=== PATIENT | female | born 1945 | race Caucasian/White ===

== ENCOUNTER → 2020-09-07 12:26 | Outpatient (BNVA) | payer MEDICARE, SELFPAY | PROVIDERS: PCP Family Medicine; Referring Provider Family Medicine; Visit Provider Internal Medicine Critical Care Medicine | DX: I70.0 Atherosclerosis of aorta (principal); R06.02 Shortness of breath | CPT/HCPCS: 71046; 80053; 82785; 85025; 86003; 86038; 86431 ==

== ENCOUNTER → 2020-11-24 09:06 | Outpatient (BNVA) | payer MEDICARE, SELFPAY | PROVIDERS: PCP Family Medicine; Visit Provider Internal Medicine Critical Care Medicine | DX: R91.1 Solitary pulmonary nodule (principal) | CPT/HCPCS: 87635 ==

== ENCOUNTER 2020-11-29 14:26 | Day surgery (SDC) | payer MEDICARE, SELFPAY ==
[2020-11-25 15:58] VITALS: BMI 22.6
[2020-11-29] VITALS (9 sets, daily range): BP systolic 162–177; BP diastolic 56–90; PULSE 68–91; RESP 18–20; TEMP 36.8; O2SAT 89–96
--- NOTE | 2020-11-29 14:49 | ANES.PREANE2 ---
Pre-Anesthetic Assessment Pre-Anesthetic Assessment: Height/Weight: Height 1.65 m Weight 61.689 kg Preop Diagnosis: ILD Proposed Procedure: Operation Date: 11/29/20 16:10 Proposed Procedures p [id number] r91.1(Not Applicable) - Monse Zamorano MD Familial anesthetic complications: none Was Beta Geovanna taken within 24 hours: N/A Was Clonidine taken within 24 hours: N/A Last intake: > 8 hrs Social: Social History: Alcohol and No tobacco Comment: 2 glasses of wine/day, former smoker - quit 18 years ago Exam: Pre-Anes Outpt Exam: alert, oriented x 3 and regular rate & rhythm Additional Exam Findings (including area of procedure): coarse breath sounds b/l Airway: Cervical ROM: WNL MP: 2 Dentition: Full Pulmonary: Pulmonary: Cough (chronic ) Anesthetic Plan: ASA status: 3 Anesthesia: General Risk of > 500 ml blood loss (7ml/kg in children): No PFSH Anesthesia PFSH: Medical History (Updated 11/22/20 @ 17:42 by Carla Wynn LPN) CAD (coronary artery disease) Chronic cough Endophthalmitis, left Gout HTN (hypertension) Hypercholesteremia Osteoarthritis Surgical History H/O angioplasty H/O tubal ligation Stented coronary artery Social History Smoking and tobacco status: former smoker Quit status (tobacco): has quit using tobacco Year quit tobacco: 2003 Former quit date comment: Hx of 1.5 PPD x 30 Years Second hand smoke exposure: No Smoking risk assessment/counseling performed?: No Alcohol intake: current Alcohol intake frequency: 0-2 Drinks per Day Alcohol type: wine Desire information about alcohol rehabilitation?: No Counseling given: No Desire information about substance/drug rehabilitation?: No Counseling given: No Lives independently: Yes Household members: spouse Marital status: Current occupational status: retired History of recent travel: No Current gender identity: Female Data Anesthesia Cardiac Studies: No Data to Display
[2020-11-29] MEDS: sodium chloride 0.9% 1,000 ML 30 ML IV (15:15)
--- NOTE | 2020-11-29 16:07 | W.PM.OPSUD ---
Surgery/Procedure H&P Update DATE OF PROCEDURE: November 29, 2020 DATE H&P PERFORMED: 11/09/20 H&P UPDATE INFORMATION: I have reviewed H&P completed within last 30 days, I have examined patient prior to procedure and No changes to prior documentation PREOP DIAGNOSIS: Left lower lobe endobronchial lesion PRIMARY INDICATION FOR PROCEDURE: This is a 75-year-old lady with suspected endobronchial lesion in the left lower lobe bronchus PLANNED PROCEDURE: Bronchoscopy inspection of the airway, possible endobronchial biopsy, bronchoalveolar lavage, Cytobrush, endobronchial sound guided transbronchial needle aspiration of lymph nodes and control of bleeding. Operation Date: 11/29/20 16:10 Proposed Procedures p [id number] r91.1(Not Applicable) - Monse Zamorano MD
[2020-11-29] MEDS: lidocaine 1% INJ 20 mL XX (16:16)
--- NOTE | 2020-11-29 17:07 | P.OP_ITS ---
Operative Report Date of procedure: November 29, 2020 Pre-op Diagnosis: Left lower lobe endobronchial lesion Brief History: This is a 75-year-old lady with suspected of left lower lobe endobronchial lesion coming in for bronchoscopic evaluation. Procedure: Name of the procedure: Bronchoscopy with inspection of the airway,endobronchial biopsies,endobronchial ultrasound-guided transbronchial needle aspiration of lymph nodes and control of bleeding. Indication: Suspected left lower lobe endobronchial lesion Anesthesia: General anesthesia. Local anesthesia: The sandy in the right and left mainstem bronchi were a nesthetized with 1% lidocaine, 3 mL. Description of the procedure: The procedure was explained to the patient and the consent was obtained. The patient was brought to the OR. The patient underwent endotracheal intubation for general anesthesia. Following induction of general anesthesia, the bronchoscope was advanced through the ET tube. The lower trachea appeared to be normal, no endotracheal lesion was seen. The sandy was sharp. The sandy, the right and left mainstem bronchi are anesthetized with 1% lidocaine. In a systematic manner bilateral bronchial tree was then examined. The bronchoscope was advanced into the left mainstem bronchus. About 2 cm from the sandy, there was mucosal irregularities extending from the left mainstem bronchus into the entrance of the left upper lobe and left lower lobe bronchus. There was narrowing of the airway. The lesion bled easily to touch. The appearance of the lesion is very concerning for malignancy. I did not try to pass the bronchoscope into the left upper lobe or lower lobe bronchus due to the risk of bleeding. The bronchoscope was then introduced into the right mainstem bronchus. The right upper lobe, right middle lobe and right lower lobe bronchi were examined up to the third subsegmental level and no abnormalities were identified. Multiple endobronchial biopsies were performed from the left mainstem bronchus. The samples are sent for histopathology and cytology. The endobronchial ultrasound was introduced through the ET tube. Mediastinal and left hilar lymphadenopathy was identified. Fine-needle aspiration was obtained from station 7 and 10 L lymph nodes. Samples: 1. The endobronchial biopsies are sent for histopathology. 2. The transbronchial needle aspiration of the aforementioned lymph node groups were sent for histopathology. Complications: There was moderate bleeding which was controlled with cold saline. No active bleeding was noted at the end of the procedure. Procedure time: 37 minutes.
--- NOTE | 2020-11-29 21:26 | ANE.PACU2 ---
Inpatient post-anesthesia follow up: Airway intact: Yes Vital signs: Temperature 98.2 F Pulse Rate 72 Respiratory Rate 20 Blood Pressure 162/56 Pulse Oximetry 96 Oxygen Delivery Me thod Simple Mask Oxygen Flow Rate 6 Fraction of Inspir ed Oxygen Hydration adequate: Yes Nausea and vomiting: No Pain level: 2 Mental status: Baseline
[2020-12-08 10:40] LABS: PD-L1 (Clone 22C3) by IHC BBPL See Report
== END 2020-11-29 17:50 | disposition home or self-care (01) ==
PROVIDERS: PCP Family Medicine; Visit Provider Internal Medicine Critical Care Medicine
PROC: BB4BZZZ Ultrasonography of Pleura (ICD-10-PCS; principal; 2020-11-29 16:00)
PROC: 0BJ08ZZ Inspection of Tracheobronchial Tree, Via Natural or Artificial Opening Endoscopic (ICD-10-PCS; CPT 31622; 2020-11-29 16:00)
DX: R91.1 Solitary pulmonary nodule (principal); Z87.891 Personal history of nicotine dependence; I25.10 Atherosclerotic heart disease of native coronary artery without angina pectoris; I10 Essential (primary) hypertension; E78.00 Pure hypercholesterolemia, unspecified; M19.90 Unspecified osteoarthritis, unspecified site
CPT/HCPCS: 31625; 31652; 80500; 88305; 88342; 94640; 96360; 96361; J1100; J2405; J2704; J2710; J3010; J3490; J7030; J7611

== ENCOUNTER → 2021-09-18 11:48 | Outpatient (BNVA) | payer MEDICARE, SELFPAY | PROVIDERS: PCP Family Medicine; Visit Provider Family Medicine | DX: R07.9 Chest pain, unspecified (principal) | CPT/HCPCS: 71046 ==

== ENCOUNTER 2022-05-09 12:21 | Observation (INO) | payer MEDICARE, SELFPAY ==
[2022-05-09] VITALS (90 sets, daily range): BP systolic 109–156; BP diastolic 68–95; PULSE 91–114; RESP 16–33; TEMP 36.8; O2SAT 43–100; BMI 20.7
--- NOTE | 2022-05-09 | CT_ITS ---
WS: [id number] CT CHEST TECHNIQUE: Noncontrast CT of the chest with coronal and sagittal reformatted images. CLINICAL INFORMATION: ABNORMALITY NOTED ON CT THORACIC SPINE COMPARISON: None. DLP: 208.[address] scans at [facility] use at least one of these dose optimization techniques: automated e xposure control; mA and/or kV adjustment per patient size (includes targeted exams where dose is matc hed to clinical indication); or iterative reconstruction. FINDINGS: Cardiomegaly. Moderate pericardial effusion. Normal caliber thoracic aorta. Moderate aortic calcifica tion. Prominent main pulmonary arteries can be seen with pulmonary arterial hypertension. Moderate LEFT pleural effusion with compressive atelectasis. Small RIGHT pleural effusion with compre ssive atelectasis. Advanced chronic emphysematous changes. Compression fractures in the mid thoracic spine described on the thoracic spine CT. LEFT costovertebral joint fractures at T6, T7, and T8. Nondisplaced fractures of the tips of the spinous processes at T6 and T7. CT/CT chest con [id number] IMPRESSION: 1. Moderate pericardial effusion. 2. Moderate LEFT and small RIGHT pleural effusions with compressive atelectasi s. 3. Mid thoracic spine compression fractures described on the thoracic spine CT . 4. LEFT costovertebral joint fractures at T6, T7, and T8. 5. Nondisplaced fractures of the tips of the spinous processes at T6 and T7.
[2022-05-09 12:34] LABS: Glucose Point of Care 89 mg/dL (70-110)
--- NOTE | 2022-05-09 12:51 | CT_ITS ---
WS: [id number] CT CERVICAL TRAUMA TECHNIQUE: Noncontrast CT of the cervical spine with coronal and sagittal reformatted images. CLINICAL INFORMATION: fall COMPARISON: None. DLP: 1264.[address] scans at [facility] use at least one of these dose optimization techniques: automated e xposure control; mA and/or kV adjustment per patient size (includes targeted exams where dose is matc hed to clinical indication); or iterative reconstruction. FINDINGS: Straightening of the normal cervical lordosis. Moderate spondylitic changes. Slight grade 1 anterolis thesis C4 on C5. Disc space narrowing worse at C5-C6 and C6-C7. No high-grade central canal stenosis. Normal craniocervical junction. Normal C1-C2 articulation. Dens is normal in appearance. Normal occi pital condyles. No high-grade spinal canal narrowing. Normal C1 ring. No evidence of acute fracture o r dislocation. Normal prevertebral soft tissues. Partially visualized fluid opacification of the LEFT lung apex. Bessie st CT is pending. Mastoids air cells are well aerated. Carotid calcification. CT/CT cervical spin wo con* [id number] IMPRESSION: 1. No evidence of acute fracture or dislocation. 2. Partially visualized fluid opacification of the LEFT lung apex. Chest CT is pending.
--- NOTE | 2022-05-09 12:51 | CT_ITS ---
WS: [id number] CT THORACIC SPINE TECHNIQUE: Noncontrast CT of the thoracic spine with coronal and sagittal reformatted images. CLINICAL INFORMATION: fall pain mid back COMPARISON: None. DLP: 367.[address] scans at [facility] use at least one of these dose optimization techniques: automated e xposure control; mA and/or kV adjustment per patient size (includes targeted exams where dose is matc hed to clinical indication); or iterative reconstruction. FINDINGS: Moderate thoracic kyphosis. Acute compression fractures involving T6, T7, T8, T10 vertebral bodies. M ild compression inferior endplate at T6 with slight fragmentation anteriorly. Biconcave compression w ith anterior wedging at T7 and T8. Mild compression superior endplate T10. No significant retropulsio n. Loss vertebral body height worse at T8 with 50% loss vertebral body height. 40% loss of height at T7. Associated paravertebral soft tissue edema. Fracture of the costovertebral junctions at LEFT T6, LEFT T7, LEFT T8. Partially visualized LEFT greater than RIGHT pleural effusions. Compressive atelectasis in the lung b ases. Advanced emphysematous changes. Partially visualized pericardial effusion. CT/CT thoracic spin wo con* [id number] IMPRESSION: 1. Acute compression fractures T6, T7, T8, and T10 vertebral bodies worse at T 8 with biconcave compression loss of approximately 50% vertebral body height. 2. No significant retropulsion. No significant central canal stenosis. 3. Partially visualized LEFT greater than RIGHT pleural effusions. 4. LEFT costovertebral junction fractures at T5-T7.
--- NOTE | 2022-05-09 12:51 | ECG_ITS ---
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 Measurements Intervals Baylis Rate: 111 P: 54 MT: 164 QRS: -28 QRSD: 121 T: 119 QT: 357 QTc: 486 Interpretive Statements SINUS TACHYCARDIA POSSIBLE ANTERIOR MYOCARDIAL INFARCTION , OF INDETERMINATE AGE [30 ms Q WAVE IN V3/V4, OR R < 0.2 mV IN V4] No previous ECG available for comparison Electronically Signed On 05-09-2022 21:42:51 BOOSTER PUMP OPERATOR by Jackie Pierce M.D. [id number]
--- NOTE | 2022-05-09 12:51 | CT_ITS ---
WS: [id number] CT HEAD TECHNIQUE: Noncontrast CT of the head obtained from the skullbase to the vertex. CLINICAL INFORMATION: fall on DOAC 3 days ago now altered COMPARISON: None. DLP: 1264.[address] scans at [facility] use at least one of these dose optimization techniques: automated e xposure control; mA and/or kV adjustment per patient size (includes targeted exams where dose is matc hed to clinical indication); or iterative reconstruction. FINDINGS: No evidence of intracranial hemorrhage or mass effect. Ventricular system and basal cisterns are navarrete nt. Moderate small vessel changes with moderate parenchymal volume loss. Vascular calcification. 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 Paranasal sinuses and mastoid air cells are well aerated. Normal posterior nasopharynx. CT/CT head wo con* [id number] IMPRESSION: 1. No evidence of intracranial hemorrhage or mass effect. 2. Moderate small vessel changes. Moderate parenchymal volume loss. 3. Intracranial vascular calcification. 4. Chronic encephalomalacia at the RIGHT frontoparietal junction near the vert ex and LEFT parietal occipital junction consistent with chronic infarcts. 5. No acute intracranial findings.
--- NOTE | 2022-05-09 12:53 | ED_ITS ---
HPI - Altered Mental Status General: Chief Complaint: Altered Mental Status Stated Complaint: AMS Time Seen by Provider: 05/09/22 12:33 Source: EMS Mode of arrival: EMS History of Present Illness: This patient was transported by her home at the request of her spouse. The history is primarily obtained from EMS but some components were obtained from the patient. Allegedly she had a ground-level fall at home approximately 3 days ago. At that time she was seen at [facility] emergency department and evaluated and discharged. Allegedly since that time she has had an alteration in her mental status. She does have a history of geoffrey ing Eliquis and its unclear whether she is continue to take that medicine after her fall. When questioned she does endorse that she has a mild headache but otherwise has no other discomfort that she complains of. She denies other symptoms currently. Review of Systems General: Reports: ROS unobtainable due to medical condition [facility] ED PFSH: Medical History CAD (coronary artery disease) Chronic cough Endophthalmitis, left Gout HTN (hypertension) Hypercholesteremia Osteoarthritis Surgical History H/O angioplasty H/O tubal ligation Stented coronary artery Social History Smoking and tobacco status: former smoker Quit status (tobacco): has quit using tobacco Year quit tobacco: 2003 Former quit date comment: Hx of 1.5 PPD x 30 Years Second hand smoke exposure: No Smoking risk assessment/counseling performed?: No Alcohol intake: current Alcohol intake frequency: 0-2 Drinks per Day Alcohol type: wine Desire information about alcohol rehabilitation?: No Counseling given: No Desire information about substance/drug rehabilitation?: No Counseling given: No Lives independently: Yes Household members: spouse Marital status: Current occupational status: retired History of recent travel: No Current gender identity: Female Physical Exam Narrative: Patient is alert makes good eye contact. She attempts to answer questions but cannot complete her answers accurately and becomes frustrated. Const: COMMON NORMALS: no acute distress and average body habitus GENERAL APPEARANCE: cooperative and comfortable ORIENTATION/CONSCIOUSNESS: Yes awake and Yes oriented to person HENMT: COMMON NORMALS: Normal nasal mucous membranes and turbinates present, moist oral mucous membranes and oropharynx normal HEAD & SCALP: contusion (occiput) FACE & SINUS: normal facial exam NOSE: Normal nasal mucous membranes and turbinates present Eye: COMMON NORMALS: Equal, round and reactive pupils present, EOMs intact bilaterally and conjunctivae normal CONJUNCTIVA: Yes conjunctivae normal PUPIL: Yes Equal, round and reactive pupils present Neck/C-Spine: COMMON NORMALS: full ROM CERVICAL SPINE: Yes cervical ROM nor mal, No pain with cervical ROM and No step off deformity Chest: COMMONS NORMALS: normal inspection of the chest and normal palpation of entire chest wall Resp: COMMON NORMALS: normal respiratory effort, No use of accessory muscles and clear to auscultation bilaterally AUSCULTATION: clear to auscultation bilaterally Cardio: COMMON NORMALS: regular rate, regular rhythm, No murmurs present (Cardio) and Peripheral pulses 2+ throughout RATE: regular rate RHYTHM: regular rhythm PERIPHERAL PULSES: Peripheral pulses 2+ throughout GI: COMMON NORMALS: Normal to inspection, nondistended, normoactive bowel sounds present, Soft to palpation and non-tender PALPATION: Yes Soft to palpation Back/Pelvis: THORACIC SPINE/UPPER BACK: Yes thoracic spinal tenderness LUMBAR SPINE/LOWER BACK: Yes normal to inspection, Yes lumbar ROM normal and No lumbar spinal tenderness PELVIS: Yes no pain with anterior-posterior compression and Yes no pain with lateral compression Extremity: COMMON NORMALS: normal to inspection, full ROM and capillary refill normal Neuro: COMMON NORMALS: moves all extremities and no focal motor deficits SE NSORIUM/ORIENTATION: Yes oriented to person CRANIAL NERVES: Yes CN normal except as noted OTHER: Again the patient is pleasantly confused but is oriented to person but is unaware of her current location and surroundings. She is able to recite remote events such as her birthday etc. Psych: COMMON NORMALS: cooperative Skin: COMMON NORMALS: no rashes or lesions noted and turgor normal GENERAL SKIN EXAM: no rashes or lesions noted and turgor normal Course Reevaluation(s): Reevaluation #1: The patient remains stable. She is alert. She again engages in conversations and will generally be aware of events and be able to answer questions fairly accurately and then she will come to a point where she cannot remember detail. Her is now present and he seems to be somewhat less and accurate in some of his responses as well. When I discussed the fact that she has a biopsy report that showed she had lung cancer he was unaware of that fact and states he had never been told of that. When I ask about chemotherapy his (the patient) stated although she has not received chemotherapy last year. The daughter who lives in [facility] apparently talked with the RN and I have managed to acquire her number I will place a call to her to get more in formation regarding their her parents. I have spoke with the patient's daughter in great detail. She relates that her mother does have some mild confusion at times but she perceives her current stat us is being a significant change. She states that she did get chemotherapy last year and completed that course. All of her care has been obtained through [facility] in [place]. She is not clear why the patient came here other than she may have been referred here from her primary care doctor who is affiliated with this facility. She states that her mother did have a significant urinary tract infection last year that caused some confusion and she wonders if that or other source of infection could be at play. Time: 17:42 Reevaluation #2: Urinalysis is is unrevealing as well as a gallbladder ultrasound for any signs of possible infection source. Given what as best be construed as a recent alteration and confusion we managed to convince the patient and spouse that it would be in her best interest for further evaluation and/or diagnostic testing to be performed and we would like to place him in observation status to carry out these plans. They voiced understanding were agreeable. I also contacted the patient's daughter who was very appreciative of our efforts. Time: 20:05 Vital Signs: Vital signs: Vital Signs Temperature 98.2 F 05/09/22 12:27 Pulse Rate 100 05/09/22 13:05 Respiratory Rate 31 H 05/09/22 13:05 Blood Pressure 138/71 05/09/22 19:05 Pulse Oximetry 95 05/09/22 19:05 Oxygen Delivery Me thod 05/09/22 12:27 Oxygen Flow Rate 4 05/09/22 12:27 MDM - Altered Mental Status Medical Decision Making This patient presented to the emergency department and her emergency department evaluation has been somewhat circuitous and complicated by some confusion both on the patient as well as the spouses part. Allegedly she came to our emergency department because she has been confused and was uncertain as to the time of that confusion but it was known that she had had a fall a couple of days ago and that she was taking Eliquis for atrial fibrillation and stroke prevention. She was seen at another facility and evaluate that time and discharge. There was some concern of whether she might of had a delayed intracranial hemorrhage due to her fall on Eliquis. Working with that presumption initially prior to obtaining more information a CT scan was obtained which did not reveal any evidence of intracranial hemorrhage etc. Subsequent imaging also was obtained due to clinical findings and she was discovered to have thoracic compression fractures in addition bilateral pleural effusions. 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 This information was shared with the family and the seemed to act as if he was unaware of this prior diagnosis however the patient did relate that she had had chemotherapy as well as other treatment at [facility] in [place]. Eventually we were able to contact the patient's daughter who relayed more information regarding her past history and in addition she seemed to think that her confusion had been over the last week to 10 days perhaps longer. She states she had a prior history of confusion with urosepsis and also relayed that that would be something she would be concerned about as well. So additional work-up was undertaken to include urinalysis which was eventually obtained as well as a gallbladder ultrasound due to a slight elevation in total bili and transaminases. Those tests were both unrevealing as to any potential source of infection. Clinically she remained stable on oxygen which she normally uses at home. No other focal findings were discovered to indicate source of acute infection etc. We were left with a differential diagnosis of delirium which in her case could be related to possible metastatic disease or a myriad of possibilities which not been elucidated in the emergency department this time. I discussed with the patient daughter as well as the overnight hospitalist and the plan was to put her in observation for additional testing and evaluation as indicated. Medical Records I reviewed the patient's medical records. Patient's apparently had a endobronchial biopsy in 2020 which showed non- squamous cell carcinoma. Lab Data I reviewed the patient's lab results. 05/09/22 15:00 05/09/22 15:[address] 05/09/22 00:00 IMPRESSION: 1. Moderate pericardial effusion. 2. Moderate LEFT and small RIGHT pleural effusions with compressive atelectasis. 3. Mid thoracic spine compression fractures described on the thoracic spine CT. 4. LEFT costovertebral joint fractures at T6, T7, and T8. 5. Nondisplaced fractures of the tips of the spinous processes at T6 and T7. Cervical Spine CT 05/09/22 12:51 IMPRESSION: 1. No evidence of acute fracture or dislocation. 2. Partially visualized fluid opacification of the LEFT lung apex. Chest CT is pending. Head CT 05/09/22 12:51 IMPRESSION: 1. No evidence of intracranial hemorrhage or mass effect. 2. Moderate small vessel changes. Moderate parenchymal volume loss. 3. Intracranial vascular calcification. 4. Chronic encephalomalacia at the RIGHT frontoparietal junction near the vertex and LEFT parietal occipital junction consistent with chronic infarcts. 5. No acute intracranial findings. Thoracic Spine CT 05/09/22 12:51 IMPRESSION: 1. Acute compression fractures T6, T7, T8, and T10 vertebral bodies worse at T8 with biconcave compression loss of approximately 50% vertebral body height. 2. No significant retropulsion. No significant central canal stenosis. 3. Partially visualized LEFT greater than RIGHT pleural effusions. 4. LEFT costovertebral junction fractures at T5-T7. Gallbladder Ultrasound 05/09/22 17:42 IMPRESSION: No acute sonographic findings. Laboratory Results WBC 4.4 10^3/uL (4.0-10.0) 05/09/22 15:00 RBC 4.71 10^6/uL (4.1-5.3) 05/09/22 15:00 Hgb 13.0 g/dL (11.5-15.3) 05/09/22 15:00 Hct 43.1 % (37.0-47.0) 05/09/22 15:00 MCV 91.5 fl (81-99) 05/09/22 15:00 MCH 27.6 pg (28.0-34.0) L 05/09/22 15:00 MCHC 30.2 g/dL (30.0-36.0) 05/09/22 15:00 RDW 18.0 % (12.1-15.1) H 05/09/22 15:00 Plt Count 174 10^3/cmm (130-400) 05/09/22 15:00 MPV 11.4 fL (7.4-10.4) H 05/09/22 15:00 Neut % (Auto) 79.6 % 05/09/22 15:00 Lymph % (Auto) 14.3 % 05/09/22 15:00 Craven % (Auto) 5.0 % 05/09/22 15:00 Eos % (Auto) 0.2 % 05/09/22 15:00 Baso % (Auto) 0.2 % 05/09/22 15:00 Neut # (Auto) 3.52 10^3/uL (1.8-7.7) 05/09/22 15:00 Lymph # (Auto) 0.6 10^3/uL (0.8-4.8) L 05/09/22 15:00 Craven # (Auto) 0.2 10^3/uL (0.2-0.9) 05/09/22 15:00 Eos # (Auto) 0.0 10^3/uL (0.0-0.8) 05/09/22 15:00 Baso # (Auto) 0.0 10^3/uL (0.0-0.1) 05/09/22 15:00 Nucleated RBC % (auto) 0 % 05/09/22 15:00 Nucleated RBCs # 0.0 /100WBC 05/09/22 15:00 PT 14.70 SECONDS (12.1-14.9) 05/09/22 15:00 INR 1.11 (0.8-1.2) 05/09/22 15:00 APTT 33.4 SECONDS (23.9-36.7) 05/09/22 15:00 Sodium 140 mmol/L (136-145) 05/09/22 15:00 Potassium 4.0 mmol/L (3.5-5.1) 05/09/22 15:00 Chloride 98 mmol/L (98-107) 05/09/22 15:00 Carbon Dioxide 25 mmol/L (22-29) 05/09/22 15:00 Anion Gap 21.0 (5-19) H 05/09/22 15:00 BUN 17 mg/dL (8-23) 05/09/22 15:00 Creatinine 0.6 mg/dL (0.5-0.9) 05/09/22 15:00 GFR Calculation Not Reportable 05/09/22 15:00 Glucose 92 mg/dL (65-115) 05/09/22 15:00 POC Glucose 89 mg/dL (70-110) 05/09/22 12:30 Calculated Osmolality 291 mOsm/kg (285-295) 05/09/22 15:00 Calcium 9.2 mg/dL (8.5-10.5) 05/09/22 15:00 Total Bilirubin 1.9 mg/dL (0.15-1.2) H 05/09/22 15:00 AST 47 U/L (0-32) H 05/09/22 15:00 ALT 32 U/L (0-33) 05/09/22 15:00 Alkaline Phosphatase 120 U/L (35-105) H 05/09/22 15:00 Ammonia 20 umol/L (11-51) 05/09/22 15:00 Total Protein 7.6 g/dL (6.6-8.7) 05/09/22 15:00 Albumin 4.3 g/dL (3.5-5.2) 05/09/22 15:00 Globulin 3.3 g/dL (1.3-4.6) 05/09/22 15:00 Urine Color Yellow (Yellow) 05/09/22 19:09 Urine Appearance Clear (CLEAR) 05/09/22 19:09 Urine pH 6 (5-7) 05/09/22 19:09 Ur Specific Deputy 1.025 (1.005-1.030) 05/09/22 19:09 Urine Protein 1+ (Negative) H 05/09/22 19:09 Urine Glucose (UA) Norm (Normal) 05/09/22 19:09 Urine Ketones 1+ (Negative) H 05/09/22 19:09 Urine Blood 2+ (Negative) H 05/09/22 19:09 Urine Nitrate Negative (Negative) 05/09/22 19:09 Urine Bilirubin 1+ (Negative) H 05/09/22 19:09 Urine Urobilinogen 4 mg/dL (Negative) H 05/09/22 19:09 Ur Leukocyte Esterase Negative (Negative) 05/09/22 19:09 Urine RBC None /hpf (0-2) 05/09/22 19:09 Urine WBC 0-4 /hpf (0-5) H 05/09/22 19:09 Ur Squamous Epith Cells 0-4 /hpf (0-5) H 05/09/22 19:09 Amorphous Sediment Not Reportable 05/09/22 19:09 Urine Bacteria Trace /hpf (NONE) 05/09/22 19:09 Hyaline Casts 0-4 /lpf H 05/09/22 19:09 Urine Mucus Trace /hpf 05/09/22 19:09 Ethyl Alcohol < 10 mg/dL (0-10) 05/09/22 15:00 EKG Data EKG 1: I personally reviewed and interpreted this EKG as follows: Interpretation: Contemporaneous review of resting EKG reveals a sinus tachycardia 111 bpm. She has normal NE interval, normal QRS duration, normal QTc interval. She has Leftward axis. She has evidence of loss of R wave the anterior precordial leads suggestive of possible anterior wall infarction. Discharge Plan Discharge Patient Disposition: Placed in Observation Clinical Impression: Delirium due to general medical condition, Compression fracture of thoracic vertebra, Lung cancer, Pleural effusion Condition: Stable Prescriptions: No Action estradiol [Vagifem] 10 mcg tablet 10 mcg vaginal Q7D cetirizine [Zyrtec] 10 mg tablet 10 mg PO DAILY meloxicam 7.5 mg tablet 7.5 mg PO BID alendronate 70 mg tablet 70 mg PO Q7D Probiotic 10 billion cell capsule 10,000 mmu cells PO DAILY Rx Instructions: administer with a meal calcium carbonate [Calcium 600] 600 mg calcium (1,500 mg) tablet 600 mg PO DAILY Prevagen 1 tab PO DAILY aspirin [Adult Aspirin Regimen] 81 mg tablet,delayed release (DR/EC) 81 mg PO DAILY Tussin DM Max 10-200 mg/5 mL liquid 10 ml PO Q8H PRN (Reason: Cough) cholecalciferol (vitamin D3) 25 mcg (1,000 unit) capsule 25 mcg PO DAILY fluticasone propion-salmeterol [Advair Diskus] 250-50 mcg/dose blister with device 1 inh inhalation BID benzonatate [Tessalon Perles] 100 mg capsule 100 mg PO TID PRN (Reason: cough) 30 Days Qty: 90 3RF prednisone 20 mg tablet 40 mg PO DAILY 5 Days Qty: 10 0RF Lipitor 80 mg Tablet 80 mg PO DAILY tramadol 50 mg Tablet 50 mg PO Q8H PRN (Reason: Pain) cyclobenzaprine 5 mg Tablet 5 mg PO DAILY PRN (Reason: Muscle Pain) metoprolol tartrate 25 mg tablet 25 mg PO DAILY Eliquis 5 mg Tablet 5 mg PO BID Referrals: ERMELINDA MEJIA MD [Primary Care Provider] - Coding Level of Care Code ED Product Accountant for Chg Fwd Exam Comprehensive
--- NOTE | 2022-05-09 13:02 | PC.PHAR ---
PT UNABLE TO VERIFY HOME MEDS - ATTEMPTED TO CALL [facility] WITH NO ANSWER. VERIFIED BY EXTERNAL MED HISTORY AND PREVIOUS HOME MED LIST ENTERED.
[2022-05-09 15:11] LABS: Basophils % 0.2 %; Eosinophils % 0.2 %; Hematocrit 43.1 % (37.0-47.0); Lymphocytes # 0.6 10^3/uL (0.8-4.8); Lymphocytes % 14.3 %; Mean Corpuscular HGB Conc 30.2 g/dL (30.0-36.0); Mean Corpuscular Hemoglobin 27.6 pg (28.0-34.0); Mean Corpuscular Volume 91.5 fl (81-99); Mean Platelet Volume 11.4 fL (7.4-10.4); Monocytes # 0.2 10^3/uL (0.2-0.9); Neutrophils # 3.52 10^3/uL (1.8-7.7); Neutrophils % 79.6 %; Nucleated Red Blood Cells % 0 %; Platelet Count 174 10^3/cmm (130-400); Red Blood Count 4.71 10^6/uL (4.1-5.3); White Blood Count 4.4 10^3/uL (4.0-10.0)
[2022-05-09 15:31] LABS: INR 1.11 (0.8-1.2); Partial Thromboplastin Time 33.4 SECONDS (23.9-36.7)
[2022-05-09 15:37] LABS: Alanine Aminotransferase 32 U/L (0-33); Albumin Level 4.3 g/dL (3.5-5.2); Alkaline Phosphatase 120 U/L (35-105); Aspartate Amino Transferase 47 U/L (0-32); Blood Urea Nitrogen 17 mg/dL (8-23); Calcium 9.2 mg/dL (8.5-10.5); Carbon Dioxide 25 mmol/L (22-29); Chloride 98 mmol/L (98-107); Globulin 3.3 g/dL (1.3-4.6); Glucose 92 mg/dL (65-115); Osmolality Calculated 291 mOsm/kg (285-295); Sodium 140 mmol/L (136-145); Total Bilirubin 1.9 mg/dL (0.15-1.2); Total Protein 7.6 g/dL (6.6-8.7)
[2022-05-09 15:38] LABS: Alcohol Level < 10 mg/dL (0-10)
[2022-05-09 15:54] LABS: Ammonia 20 umol/L (11-51)
--- NOTE | 2022-05-09 17:42 | USR_ITS ---
PROCEDURE INFORMATION: Exam: US Abdomen, Limited; Right Upper Quadrant Exam date and time: 05/09/2022 5:50 PM Age: 77 years old Clinical indication: Abnormal findings; Abnormal lab test; Elevated liver enzymes; Additional info: Confusion, elivated bili TECHNIQUE: Imaging protocol: Real time ultrasound of the abdomen with image documentation. Limited exam focused on the right upper quadrant. COMPARISON: CT chest wo con [id number] 05/09/2022 1:27 PM FINDINGS: Liver: Unremarkable. Gallbladder: No gallstones. No gallbladder wall thickening or pericholecystic fluid. Negative sonographic Lyn's sign, as per the performing liaison inspection laboratory assistant. Biliary ducts: Normal. No stones. No dilation. Pancreas: Unremarkable as visualized. Right kidney: No mass. No definite stones. No hydronephrosis. US/US gall bladder [id number] IMPRESSION: No acute sonographic findings.
[2022-05-09 19:47] LABS: Add Urine Microscopic? YES; Bilirubin Urine 1+ (Negative); Blood Urine 2+ (Negative); Glucose Urine UA Norm (Normal); Ketones Urine 1+ (Negative); Leukocyte Esterase Urine Negative (Negative); Nitrate Urine Negative (Negative); Protein Urine 1+ (Negative); Specific Gravity, Urine 1.025 (1.005-1.030); Squamous Epithelial Cell Urine 0-4 /hpf (0-5); Urine Appearance Clear (CLEAR); Urine Color Yellow (Yellow); Urobilinogen Urine 4 mg/dL (Negative); WBC Urine 0-4 /hpf (0-5); pH Urine 6 (5-7)
[2022-05-09 19:48] LABS: Add Urine Culture? No; Bacteria Urine TRACE /hpf; Hyaline Casts Urine 0-4 /lpf; Mucus Urine TRACE /hpf
--- NOTE | 2022-05-09 21:21 | USCV_ITS ---
Jacqui Saavedra Age: 77 Gender: F : 1945 Exam Date: 05/09/2022 22:12 Ordering Phys: Anibal Godwin MD Technologist: ANA M [place] [facility] [place]ication: pericardial effusion Patient admitted for altered mental status. Patient denies hx cardiac intervention BP: 143 / 88 HR: 78 Rhythm: Atrial fibrillation Technical Quality: Adequate MEASUREMENTS (Male / Female) Normal Values 2D ECHO LV Diastolic Diameter PLAX 3.1 cm 4.2 - 5.9 / 3.9 - 5.3 cm LV Systolic Diameter PLAX 2.0 cm IVS Diastolic Thickness 1.5 cm 0.6 - 1.0 / 0.6 - 0.9 cm IVS Systolic Thickness 1.9 cm LVPW Diastolic Thickness 1.5 cm 0.6 - 1.0 / 0.6 - 0.9 cm LVPW Systolic Thickness 2.1 cm LVOT Diameter 1.9 cm LV Ejection Fraction 2D Teich 68.3 % LV Ejection Fraction MOD 2C 80.8 % LV Ejection Fraction 2C AL 82.0 % LA Diameter 3.0 cm LA Width 2.8 cm LA Height 4.3 cm RA Width 3.8 cm RA Height 4.9 cm Aorta at Sinotubular Diameter 2.7 cm IVC Diameter 2.0 cm M-MODE Aortic Annulus Diameter 2.7 cm LA Ao Ratio MM 1.2 MV E Point Septal Separation 0.4 cm DOPPLER AV Peak Velocity 102.0 cm/s LVOT Peak Velocity 81.0 cm/s AV Area Cont Eq vti 1.9 cm squared AV Area Cont Eq pk 2.2 cm squared MV Area PHT 5.0 cm squared MV E' Velocity 65.0 cm/s Mitral E to MV E' Ratio 6.8 Mitral E to LV E' Lateral Ratio 5.0 Mitral E to LV E' Septal Ratio 10.9 TR Peak Velocity 334.0 cm/s TR Peak Gradient 44.6 mmHg TV Peak E Velocity 94.3 cm/s Right Atrial Pressure 5.0 mmHg Pulmonary Artery Systolic Pressu 49.6 mmHg PV Peak Velocity 79.0 cm/s RV Acceleration Time 0.1 s RV Ejection Time 0.3 s RV AcT/ET 0.3 FINDINGS Left Ventricle Normal LV size ejection fraction of around 55% . Relative hypokinesia of the septum. Mild to moderate concentric left- ventricular hypertrophy Right Ventricle Dilated dilated right ventricle with a normal ejection fraction Right Atrium Mildly increased right atrial size. Left Atrium The left atrium is normal in size. Mitral Valve No gross abnormalities noted Aortic Valve Thickened aortic valve. Tricuspid Valve Moderately severe tricuspid regurgitation. Moderate pulmonary hypertension with an estimated pulmonary artery peak systolic pressure 55 mmHg Pulmonic Valve No gross abnormalities noted Pericardium Echo-free space anteriorly and posteriorly suggesting small to moderate pericardial effusion Possible moderate to large left-sided pleural effusion Aorta Normal aortic annulus size. IVC Normal IVC dimension with >50% respiratory change of the inferior vena cava. CONCLUSIONS Normal LV size ejection fraction of around 55% . Relative hypokinesia of the septum. Mild to moderate concentric left- ventricular hypertrophy. Echo-free space anteriorly and posteriorly suggesting small to moderate pericardial effusion Possible moderate to large left-sided pleural effusion Mildly increased right atrial size. Mildly dilated right ventricle with a normal ejection fraction Moderately severe tricuspid regurgitation. Moderate pulmonary hypertension with an estimated pulmonary artery peak systolic pressure 55 mmHg. Thickened aortic valve. No similar previous studies are available for comparison Dr Jackie Pierce MD [facility] (Electronically Signed) Final Date: 10 May 2022 08:21 S
--- NOTE | 2022-05-09 21:21 | USCV_ITS ---
Jacqui Saavedra Age: 77 Gender: F : 1945 Exam Date: 05/09/2022 21:34 Ordering Phys: Anibal Godwin MD Technologist: ANA M [place]am [place] [facility] [place] Indication: altered mental status. No DM. long-term smoker, continues smoking. Risk Factors: altered mental status. No DM. long-term smoker, continues smoking. Previous Vascular Surgery: None Right Brachial BP: 143 / 88 Left Brachial BP: / Right Left Velocity (cm/s) Spectral Plaque Velocity (cm/s) Spectral Plaque Syst/Diast Broadening Syst/Diast Broadening 53.40/ 3.70 Min Hetro Prox CCA 63.90 / 11.00 Min Hetro 48.60/ 6.90 Min Sony Mid CCA 59.50 / 13.20 Min Sony 37.40/ 9.10 Mod Sony Distal CCA 51.90 / 9.20 Mod Sony 122.27/14.53 Mod Sony Prox ICA 45.90 / 12.30 Mod Sony 35.45/ 10.15 Min Sony Mid ICA 77.70 / 20.20 Min Sony 84.80/ 26.30 Min Sony Distal ICA 82.30 / 26.40 Min Sony 78.30 Min Sony ECA 101.40 Min Sony 1.60 ICA/CCA 1.29 Antegrade Vertebral Antegrade 46.70/ 9.20 cm/s 48.50/ 12.10 cm/s Tri Subclavian Tri 59.80 60.50 CONCLUSIONS Right ICA stenosis <50%. Moderate atheromatous plaque right carotid bulb/ICA. Left ICA stenosis <50%. Moderate atheromatous plaque left carotid bulb/ICA. Normal antegrade Doppler flow noted in the right vertebral artery. Normal antegrade Doppler flow noted in the left vertebral artery. Charles Jarvis MD (Electronically Signed) Final Date: 10 May 2022 12:22 S
--- NOTE | 2022-05-09 21:23 | P.HP_ITS ---
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 Currently patient is alert to person, not to place, not to time, she can follow commands, she really does not have any complaints except the back of her head hurting her but she does not know why she is here. According to ER staff and ER physician, patient was at [facility] roughly a week ago for a fall, this history was obtained from , but infor mation was not very clear, were not exactly sure what happened during that hospitalization, but she was eventually discharged home. When she got home she continued to have falls she is taking Eliquis, her only complaint currently is that the back of her head hurts her and she feels foggy. No facial droop, no slurring of words, no focal weakness, she can follow commands such as closing her eyes, wiggling her toes, denies any back pain, no headache, no blurry vision, no neck pain, neck stiffness, no chest pain, shortness of breath no, no abdominal pain, no dysuria, Review of Systems Const: Denies: fever(s) Eyes: Denies: change in vision or blurry vision Card: Denies: chest pain Resp: Denies: dyspnea, productive cough, non-productive cough or wheezing GI: Denies: abdominal pain, nausea, vomiting or hematochezia : Denies: dysuria or urinary frequency Musc: Denies: neck pain or back pain Skin/Breast: Denies: rash Neuro: Denies: headache(s) or dizziness Medications/Allergies Home Medications Medication Instructions Recorded Confirmed Last Taken Type Lactobacillus acidophilus 10 10,000 mmu cells PO DAILY 09/07/20 05/09/22 11/27/20 History billion cell capsule (Probiotic) Prevagen 1 tab PO DAILY 09/07/20 05/09/22 11/27/20 History alendronate 70 mg tablet 70 mg PO Q7D 09/07/20 05/09/22 11/27/20 History aspirin 81 mg tablet,delayed 81 mg PO DAILY 09/07/20 05/09/22 11/27/20 History release (Adult Aspirin Regimen) calcium carbonate 600 mg calcium 600 mg PO DAILY 09/07/20 05/09/22 11/27/20 History (1,500 mg) tablet (Calcium) cetirizine 10 mg tablet (Zyrtec) 10 mg PO DAILY 09/07/20 05/09/22 11/27/20 History cholecalciferol (vitamin D3) 25 25 mcg PO DAILY 09/07/20 05/09/22 11/27/20 History mcg (1,000 unit) capsule dextromethorphan-guaifenesin 10 10 ml PO Q8H PRN Cough 09/07/20 05/09/22 11/27/20 History mg-200 mg/5 mL oral liquid (Tussin DM Max) estradiol 10 mcg vaginal tablet 10 mcg vaginal Q7D 09/07/20 05/09/22 11/27/20 History (Vagifem) meloxicam 7.5 mg tablet 7.5 mg PO BID 09/07/20 05/09/22 11/27/20 History benzonatate 100 mg capsule 100 mg PO TID PRN cough 30 days 11/09/20 05/09/22 11/27/20 Rx (Mireya Garcia) #90 caps fluticasone 250 mcg-salmeterol 50 1 inh inhalation BID 11/09/20 05/09/22 11/27/20 History mcg/dose blistr powdr for inhalation (Advair Diskus) prednisone 20 mg tablet 40 mg PO DAILY 5 days #10 tabs 11/29/20 05/09/22 Unknown Rx apixaban 5 mg tablet (Eliquis) 5 mg PO BID 05/09/22 05/09/22 Unknown History atorvastatin 80 mg tablet (Lipitor) 80 mg PO DAILY 05/09/22 05/09/22 Unknown History cyclobenzaprine 5 mg tablet 5 mg PO DAILY PRN Muscle Pain 05/09/22 05/09/22 Unknown History metoprolol tartrate 25 mg tablet 25 mg PO DAILY 05/09/22 05/09/22 Unknown History tramadol 50 mg tablet 50 mg PO Q8H PRN Pain 05/09/22 05/09/22 Unknown History Allergies Allergy/AdvReac Type Severity Reaction Status Date / Time clindamycin Allergy Mild ALGY-Rash Verified 11/25/20 15:50 PFSH Acute PFSH: Medical History CAD (coronary artery disease) Chronic cough Endophthalmitis, left Gout HTN (hypertension) Hypercholesteremia Osteoarthritis Surgical History H/O angioplasty H/O tubal ligation Stented coronary artery Social History Smoking and tobacco status: former smoker Quit status (tobacco): has quit using tobacco Year quit tobacco: 2003 Former quit date comment: Hx of 1.5 PPD x 30 Years Second hand smoke exposure: No Smoking risk assessment/counseling performed?: No Alcohol intake: current Alcohol intake frequency: 0-2 Drinks per Day Alcohol type: wine Desire information about alcohol rehabilitation?: No Counseling given: No Desire information about substance/drug rehabilitation?: No Counseling given: No Lives independently: Yes Household members: spouse Marital status: Current occupational status: retired History of recent travel: No Current gender identity: Female Vitals/I&O/Wt Last Vital Signs Temp 98.2 F 05/09/22 12:27 Pulse 100 05/09/22 13:05 Resp 31 H 05/09/22 13:05 BP 143/88 05/09/22 20:10 Pulse Ox 98 05/09/22 20:10 O2 Del Method 05/09/22 12:27 O2 Flow Rate 4 05/09/22 12:27 Weight last 48 hrs Weight 56.699 kg Physical Exam Const: COMMON NORMALS: no acute distress EXAM LIMITATIONS: altered mental status ORIENTATION/CONSCIOUSNESS: Yes awake, Yes oriented to person and Yes confused; not oriented to place and not oriented to time HENMT: COMMON NORMALS: normocephalic HEAD & SCALP: normocephalic Eye: COMMON NORMALS: Equal, round and reactive pupils present and EOMs intact bilaterally Neck/C-Spine: COMMON NORMALS: no JVD Lymph: LYMPHATIC: no lymphadenopathy noted Resp: COMMON NORMALS: normal respiratory effort, No retractions, No use of accessory muscles and clear to auscultation bilaterally AUSCULTATION: clear to auscultation bilaterally Cardio: COMMON NORMALS: regular rate, regular rhythm, S1 normal heart sound p resent and S2 normal heart sound present RATE: regular rate RHYTHM: regular rhythm HEART SOUNDS: S1 normal heart sound present and S2 normal heart sound present GI: COMMON NORMALS: Normal to inspection, nondistended, normoactive bowel sounds present, Soft to palpation and non-tender Extremity: COMMON NORMALS: no pedal edema Neuro: COMMON NORMALS: CN's II-XII intact bilaterally, moves all extremities, no focal motor deficits and no sensory deficits noted Data 05/09/22 15:00 05/09/22 15:00 A&P Assessment and plan (1) Compression fracture of thoracic vertebra: (2) Lung cancer: (3) Pleural effusion: (4) Altered mental status: (5) Pericardial effusion: (6) History of CVA (cerebrovascular accident): (7) Squamous cell lung cancer: (8) Fracture dislocation of costovertebral joint: (9) Bilateral pleural effusion: (10) Spinous process fracture: Plan Altered mental status -Etiology unclear at this time -UA unremarkable for UTI -chest x-ray no focal pneumonia -No neck pain, no neck stiffness, Kernig sign negative, brudunski sign negative -Urine cultures, blood cultures, sputum cultures -Pro-Sony, CRP, sed rate, TSH -Given her history of squamous cell carcinoma the lung, will consider MRI of the brain for possible intracranial mets? -Will evaluate for D-dimer, if elevated, will do CT angiogram of the chest given evidence of squamous cell carcinoma but has not undergone any form of further treatment or evaluation or follow-up -Obtain records from [facility] as she received some care there -Hopefully obtain more of a history from patient's daughter -ER physician spoke to patient's however history taking was difficult I was told, he was also surprised that she had a history of lung cancer, nor was he aware of any follow-up I was told -Full code -Eliquis for DVT prophylaxis Pericardial effusion, seen on CT Will do ultrasound -With history of falls possibly hemorrhagic pericardial effusion? -No hemodynamic compromise, no complaints of chest pain -Serial EKGs, serial troponins, telemetry monitoring Chronic CVA Chronic encephalomalacia at the RIGHT frontoparietal junction near the vertex and LEFT parietal occipital junction consistent with chronic infarcts. -Baseline mental status unknown, not sure if she has any focal neurologic deficits from this, timeframe unknown -Neurochecks, NIH stroke scale, Acute compression fractures T6, T7, T8, and T10 vertebral bodies worse at T8 with biconcave compression loss of approximately 50% vertebral body height. .-PT OT -Not complaining of any pain -Likely related to fall LEFT costovertebral junction fractures at T5-T7. ?.-PT OT -Not complaining of any pain -Likely related to fall Nondisplaced fractures of the tips of the spinous processes at T6 and T7. .-PT OT -Not complaining of any pain -Likely related to fall Bilateral pleural effusions -Possibly hemorrhagic effusions from fall versus possibly malignancy Patient had biopsy positive for squamous cell carcinoma, from a left main bronchus endobronchial biopsy, this was on 12/17 2020 -I do not see any documentation of any follow-up, on his oncology, she does receive some care at [facility] will get records from [facility] Medical Necessity Statement*: Patient requires hospitalization, inpatient, greater than 2 minutes, for pericardial effusion, bilateral pleural effusions, thoracic spinal compression fractures, costovertebral joint fractures, spinous process fractures, altered mental status, Coding Level of Care Code Acute Environmental Compliance Inspector for [facility] Fwd Diagnoses Compression fracture of thoracic vertebra S22.000A Lung cancer C34.90 Pleural effusion J90 Altered mental status R41.82 Pericardial effusion I31.39 History of CVA (cerebrovascular accident) Z86.73 Squamous cell lung cancer C34.90 Fracture dislocation of costovertebral joint Bilateral pleural effusion J90 Spinous process fracture
[2022-05-09 23:01] LABS: Estmated Average Glucose 123; Hemoglobin A1C 5.9 % (4.0-6.0)
[2022-05-09 23:04] LABS: Lactic Sepsis W/Reflex 1.5 mmol/L (0.5-2.2)
[2022-05-09 23:14] LABS: Troponin(5th) Baseline 24 ng/L (0-10)
[2022-05-09 23:21] LABS: NT Pro B Type Natriuretic Pept 4301 pg/mL (0-450); Procalcitonin 0.72 ng/mL (0-0.5); Thyroid Stimulating Hormone 2.44 uIU/mL (0.27-4.20)
[2022-05-09 23:32] LABS: C Reactive Protein 56.5 mg/L (0.0-4.9)
[2022-05-09 23:41] LABS: INR 1.14 (0.8-1.2)
[2022-05-09 23:51] LABS: D Dimer 4.49 ug/mIFEU (0-0.59)
[2022-05-10] VITALS (10 sets, daily range): BP systolic 104–162; BP diastolic 65–98; PULSE 75–118; RESP 16–27; TEMP 36.2–36.7; O2SAT 93–100
--- NOTE | 2022-05-10 00:39 | ECG_ITS ---
[facility] Test Date: 2022-05-10 Pat Name: Jacqui Saavedra Department: Room: 279 Gender: Female Nurse Ldr: : 1945 Requested By: Anibal Godwin Order Number: [id number] Tea MD: Jackie Pierce M.D. Measurements Intervals [place] Rate: 113 P: 44 TN: 148 QRS: -23 QRSD: 108 T: 156 QT: 342 QTc: 470 Interpretive Statements SINUS TACHYCARDIA LOW QRS VOLTAGE IN EXTREMITY LEADS [QRS DEFLECTION < 0.5 mV IN LIMB LEADS] ANTEROSEPTAL MYOCARDIAL INFARCTION , OF INDETERMINATE AGE [40+ ms Q WAVE IN V1-V4] Compared to ECG 05/10/2022 01:48:32 Low QRS voltage now present Myocardial infarct finding still present Electronically Signed On 05-10-2022 20:41:04 CABLE TENDER by Jackie Pierce M.D. [id number]
[2022-05-10] MEDS: pantoprazole 40 mg SDV IVP (01:36)
--- NOTE | 2022-05-10 01:48 | ECG_ITS ---
[facility] Test Date: 2022-05-10 Pat Name: Jacqui Saavedra Department: Room: 279 Gender: Female Refinery Operator: : 1945 Requested By: Anibal Godwin Order Number: [id number] Tea MD: Jackie Pierce M.D. Measurements Intervals [place] Rate: 112 P: 51 NV: 156 QRS: -15 QRSD: 124 T: 122 QT: 369 QTc: 505 Interpretive Statements SINUS TACHYCARDIA POSSIBLE LEFT ATRIAL ENLARGEMENT [-0.1mV P-WAVE IN V1/V2] POSSIBLE ANTERIOR MYOCARDIAL INFARCTION , OF INDETERMINATE AGE [30 ms Q WAVE IN V3/V4, OR R < 0.2 mV IN V4] Compared to ECG 05/09/2022 13:04:04 No significant changes Electronically Signed On 05-10-2022 20:46:02 EDUCATION AND TRAINING COORDINATOR by Jackie Pierce M.D. [email or web address] EngineeringN[facility].[email or web address]/store/[id number]
--- NOTE | 2022-05-10 08:29 | P.PN_ITS ---
Subjective Subjective: Patient is pleasantly oriented to herself She was able to tell me her name date of and name of her , tells me that she is at home Vitals/I&O/Wt Last Vital Signs Temp 97.8 F 05/10/22 08:00 Pulse 110 H 05/10/22 08:00 Resp 16 05/10/22 08:00 BP 134/81 05/10/22 08:00 Pulse Ox 96 05/10/22 08:00 O2 Del Method 05/10/22 08:00 O2 Flow Rate 4 05/10/22 08:00 05/09/22 05/10/22 05/10/22 22:59 06:59 14:59 Intake Total 300 / 300 Output Total 0 / 0 Balance 300 / 300 Weight last 48 hrs Weight 56.699 kg Physical Exam Narrative: Tangential thoughts Pleasantly confused Oriented to self No focal deficits Trace edema, pedal edema Clinically looks dehydrated No active chest pain Tachycardic Currently on 4 L nasal cannula Does not seem to be in distress Data 05/09/22 15:00 05/09/22 15:00 Micro: Microbiology 05/09/22 05:34 Blood Culture - Preliminary Blood SPECIMEN COLLECTED A&P Assessment and plan (1) Spinous process fracture: (2) Bilateral pleural effusion: (3) Fracture dislocation of costovertebral joint: (4) Squamous cell lung cancer: (5) History of CVA (cerebrovascular accident): (6) Pericardial effusion: (7) Altered mental status: (8) Delirium due to general medical condition: (9) Compression fracture of thoracic vertebra: (10) Lung cancer: (11) Interstitial lung disease: Plan Acute on chronic hypoxic At home uses 2 to 3 L currently on 4 L No acute respiratory distress Acute delirium most likely due to underlying squamous cell cancer Paraneoplastic syndrome? Patient seems to be pleasantly confused Multiple compression fractures she should not be on any blood thinners Sinus tachycardia irregular heart rhythm, not a candidate for anticoagulation, will do metoprolol twice a day regimen instead of daily Repeat blood work for tomorrow Will discuss goals of care with her , I have tried to call him this morning, it went to voicemail Pericardial effusion No hemodynamic instability In case of further worsening of hypoxia or tachycardia she might need CTA chest High D-dimer noted which could be related to cancer Continue cardiac diet Attestations Medical Necessity Statement*: Continue medical management Time Spent in Patient Care: 30 Coding Level of Care Code Acute Jewel Oliving Machine Operator for [facility] Fwd Diagnoses Spinous process fracture Bilateral pleural effusion J90 Fracture dislocation of costovertebral joint Squamous cell lung cancer C34.90 History of CVA (cerebrovascular accident) Z86.73 Pericardial effusion I31.39 Altered mental status R41.82 Delirium due to general medical condition F05 Compression fracture of thoracic vertebra S22.000A Lung cancer C34.90 Interstitial lung disease J84.9
[2022-05-10] MEDS: apixaban 5 mg Tablet PO ×2 (09:59→18:44)
[2022-05-10] MEDS: cholecalciferol (vitamin D3) 1,000 unit Tablet 1000 UNIT PO (09:59)
[2022-05-10] MEDS: cetirizine 10 mg Tablet PO (09:59)
[2022-05-10] MEDS: metoprolol tartrate 25 mg Tablet PO ×2 (10:00→19:39)
[2022-05-10] MEDS: atorvastatin 40 mg Tablet 80 MG PO (10:00)
[2022-05-10] MEDS: aspirin 81 mg EC Tablet PO (10:00)
[2022-05-10 16:08] LABS: Erythrocyte Sedimentation Rate 11 mm/hr (0-15)
[2022-05-10 16:11] LABS: Erythrocyte Sedimentation Rate 4 mm/hr (0-15)
[2022-05-11] VITALS (9 sets, daily range): BP systolic 117–138; BP diastolic 72–83; PULSE 76–94; RESP 16–21; TEMP 36.3–36.9; O2SAT 92–99
--- NOTE | 2022-05-11 10:00 | PM.PN ---
Subjective Subjective: Patient is awaiting placement Not oriented to time place or person however able to answer simple questions She opens her eyes and does try to reciprocate Vitals/I&O/Wt Last Vital Signs Temp 97.7 F 05/11/22 08:00 Pulse 89 05/11/22 08:00 Resp 17 05/11/22 08:00 BP 135/79 05/11/22 08:00 Pulse Ox 94 05/11/22 08:00 O2 Del Method 05/11/22 08:00 O2 Flow Rate 4 05/11/22 08:00 05/10/22 05/11/22 05/11/22 22:59 06:59 14:59 Intake Total 300 / 300 Balance 300 / 300 Weight last 48 hrs Weight 56.699 kg Physical Exam Narrative: Patient currently is on 3 L of oxygen Awake and alert Oriented to self Able to follow commands Euvolemic to dehydrated status Hemodynamically stable No active pain Patient looked comfortable laying supine in her bed S1, S2 Lower extremity no edema Data 05/09/22 15:00 05/09/22 15:00 Micro: Microbiology 05/09/22 05:34 Blood Culture - Preliminary Blood 05/10/22 Unknown Blood Culture - Preliminary Blood A&P Assessment and plan (1) Spinous process fracture: (2) Bilateral pleural effusion: (3) Fracture dislocation of costovertebral joint: (4) Squamous cell lung cancer: (5) Pericardial effusion: (6) Lung cancer: (7) Interstitial lung disease: Plan Delta troponin, EKG and echo unremarkable Multiple compression fractures History of lung cancer is leaning towards palliative care at the group home DNR/DNI Opioids for compression fracture Limited PT evaluation Currently on 4 L secondary to hypoventilation, acute on chronic hypoxia, at home uses 3 L of oxygen, 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
[2022-05-11] MEDS: aspirin 81 mg EC Tablet PO (10:28)
[2022-05-11] MEDS: metoprolol tartrate 25 mg Tablet PO (10:28)
[2022-05-11] MEDS: apixaban 5 mg Tablet PO ×2 (10:28→18:06)
[2022-05-11] MEDS: atorvastatin 40 mg Tablet 80 MG PO (10:28)
[2022-05-11] MEDS: cetirizine 10 mg Tablet PO (10:28)
[2022-05-11] MEDS: cholecalciferol (vitamin D3) 1,000 unit Tablet 1000 UNIT PO (10:28)
[2022-05-11] MEDS: pantoprazole 40 mg SDV IVP (10:34)
[2022-05-12] VITALS (10 sets, daily range): BP systolic 117–149; BP diastolic 64–89; PULSE 56–93; RESP 16–19; TEMP 36.3–36.7; O2SAT 90–99
[2022-05-12] MEDS: aspirin 81 mg EC Tablet PO (10:19)
[2022-05-12] MEDS: atorvastatin 40 mg Tablet 80 MG PO (10:20)
[2022-05-12] MEDS: cholecalciferol (vitamin D3) 1,000 unit Tablet 1000 UNIT PO (10:20)
[2022-05-12] MEDS: cetirizine 10 mg Tablet PO (10:20)
[2022-05-12] MEDS: apixaban 5 mg Tablet PO ×2 (10:20→17:42)
[2022-05-12] MEDS: pantoprazole 40 mg SDV IVP (10:25)
[2022-05-12] MEDS: metoprolol tartrate 25 mg Tablet PO ×2 (10:25→20:28)
--- NOTE | 2022-05-12 10:47 | P.PN_ITS ---
Subjective Subjective: Awaiting placement No overnight events Patient has been confused and not willing to eat However did not ask any question I did ask about the pain she never complained of pain throughout the hospital ization She was concerned why it is taking so long to get her placed in a rehab Vitals/I&O/Wt Last Vital Signs Temp 97.7 F 05/12/22 08:00 Pulse 83 05/12/22 08:00 Resp 17 05/12/22 08:00 BP 131/85 05/12/22 08:00 Pulse Ox 95 05/12/22 08:33 O2 Del Method 05/12/22 08:33 O2 Flow Rate 3 05/12/22 08:33 05/11/22 05/12/22 05/12/22 22:59 06:59 14:59 Intake Total 220 / 700 120 / 120 Balance 220 / 700 120 / 120 Physical Exam Narrative: Awake and alert Laying supine Dehydrated S1, S2 Abdomen soft no audible stridor or wheezing Currently doing well on 2 L nasal cannula Pleasantly confused Short attention span Able to answer simple questions Data 05/09/22 15:00 05/09/22 15:00 Micro: Microbiology 05/10/22 Unknown Blood Culture - Preliminary Blood A&P Assessment and plan (1) Spinous process fracture: (2) Bilateral pleural effusion: (3) Fracture dislocation of costovertebral joint: (4) History of CVA (cerebrovascular accident): (5) Squamous cell lung cancer: (6) Compression fracture of thoracic vertebra: (7) Lung cancer: Plan Awaiting placement Chronic hypoxia uses 2 to 3 L of oxygen at home Multiple, axis of her spine No signs of cauda equina not a good surgical candidate is opting for intermediate placement might start palliative care as well DNR/DNI Patient is oriented to herself Tries to resist her diet Currently on dysphagia 6 diet Attestations Medical Necessity Statement*: Awaiting placement Time Spent in Patient Care: 10 Coding Level of Care Code Acute Code for Chg Fwd Diagnoses Spinous process fracture Bilateral pleural effusion J90 Fracture dislocation of costovertebral joint History of CVA (cerebrovascular accident) Z86.73 Squamous cell lung cancer C34.90 Compression fracture of thoracic vertebra S22.000A Lung cancer C34.90
--- NOTE | 2022-05-12 15:26 | XRR_ITS ---
PROCEDURE INFORMATION: Exam: XR Chest Exam date and time: 05/12/2022 3:30 PM Age: 77 years old Clinical indication: Dyspnea; Additional info: Hypoxia TECHNIQUE: Imaging protocol: Radiologic exam of the chest. Views: 1 view. COMPARISON: CT chest con [id number] 05/09/2022 1:27 PM FINDINGS: Lungs: Low right lung volume. No consolidation. Pleural spaces: Large left lower lung pleural effusion. No pneumothorax. Heart/Mediastinum: Unremarkable. No cardiomegaly. Bones/joints: Unremarkable. A left central line is present extending into the right atrium XR/XR chest 1V portable [id number] IMPRESSION: 1. Large left lung pleural effusion. 2. Left central line is in the right atrium. 3. Low lung volumes in the right lung. 4. Otherwise negative examination
[2022-05-13] VITALS (12 sets, daily range): BP systolic 112–136; BP diastolic 69–84; PULSE 69–98; RESP 16–24; TEMP 36.1–37.1; O2SAT 91–98
[2022-05-13] MEDS: levoFLOXacin 750 mg Tablet PO (06:11)
[2022-05-13] MEDS: atorvastatin 40 mg Tablet 80 MG PO (09:10)
[2022-05-13] MEDS: calcium carb-vit d 600mg/400unit 1 Tablet 1 EACH PO (09:11)
[2022-05-13] MEDS: cholecalciferol (vitamin D3) 1,000 unit Tablet 1000 UNIT PO (09:11)
[2022-05-13] MEDS: cetirizine 10 mg Tablet PO (09:11)
[2022-05-13] MEDS: pantoprazole 40 mg SDV IVP (09:13)
[2022-05-13] MEDS: metoprolol tartrate 25 mg Tablet PO ×2 (09:13→21:14)
--- NOTE | 2022-05-13 10:41 | PC.SOCIAL ---
IMM Update pg 2 of IMM updated and reviewed w/ patient's daughter. Copy left @ Bedside and copy dated, initialed and placed in chart.
--- NOTE | 2022-05-13 11:21 | P.PN_ITS ---
Subjective Subjective: Patient does not eat very well, Patient is pleasant able to carry a decent conversation, struggles with word finding difficulty on and off Daughter is very concerned she is calling unit again from [place] to see if there are any reversible causes Her name is [place] phone number [phone], I have updated her on Saturday and Saturday She is wanting us to follow-up with PCP and oncologist at [facility] to see if there is any thing we can do before sending her to the rehab Dr. Mcadams is the oncologist and Dr. Doran is the PCP phone number [phone] Dr. Burnett number: [phone] I told her that we will call [facility] once clinic are open on Saturday to send all the images so we can discuss if something needs to be done I have requested thoracentesis for left-sided worsening pleural effusion Daughter told me that at home she uses 5 L not 3 L, she keeps saying that her confusion is relatively new which should be worked up I did tell her that she has had extensive work-up which has been unremarkable other than compression fractures and chronic changes on lung We have started her on empirical treatment with levofloxacin however no signs of UTI or pneumonia so far I will get MRI Vitals/I&O/Wt Last Vital Signs Temp 98.7 F 05/13/22 07:54 Pulse 85 05/13/22 11:00 Resp 16 05/13/22 07:54 BP 119/73 05/13/22 07:54 Pulse Ox 91 05/13/22 08:00 O2 Del Method 05/13/22 08:00 O2 Flow Rate 4 05/13/22 08:00 05/12/22 05/13/22 05/13/22 22:59 06:59 14:59 Intake Total 360 / 720 120 / 120 Balance 360 / 720 120 / 120 Physical Exam Narrative: Pleasant Oriented to place and person Able to talk with her daughter however struggles with word finding No active strokelike features Nonfocal neuro exam Euvolemic to dehydrated Abdomen soft S1, S2 Currently on 5 L nasal cannula Data 05/09/22 15:00 05/09/22 15:00 Micro: Microbiology 05/10/22 Unknown Blood Culture - Preliminary Blood A&P Assessment and plan (1) Spinous process fracture: (2) Bilateral pleural effusion: (3) Fracture dislocation of costovertebral joint: (4) Squamous cell lung cancer: (5) History of CVA (cerebrovascular accident): (6) Pericardial effusion: (7) Altered mental status: (8) Delirium due to general medical condition: (9) Compression fracture of thoracic vertebra: (10) Lung cancer: (11) Pleural effusion: Plan 77-year-old female who carries history of squamous cell lung cancer as per the daughter cancer has been in remission, cancer doctor and PCP is at [facility], she was admitted for acute metabolic encephalopathy, her work-up has been unremarkable so far no signs of UTI, no signs of pneumonia, CT scan unremarkable, CT scan of spine showed multiple compression fractures, considering significant encephalomalacia at this could be initiation of dementia related symptoms, is not able to take care of her and requesting rehab placement and possible palliative care if she gets worse onwards, Is requesting if he can send images to [facility] physicians to compare, I will talk with PCP once the clinic is open to ask about her mentation Metabolic encephalopathy likely related to underlying dementia No significant signs of focal deficits Word finding difficulty Will get MRI tomorrow morning To work with PT and OT Currently on dysphagia diet Poor p.o. intake Notable compression fracture with conservative management she never complained of pain from day 1 Left costovertebral junction fracture T5 T7 due to recent fall High risk for development of cauda equina not a good candidate for surgical intervention Bilateral pleural effusion left greater than right requested thoracentesis Chronic CVA: Pericardial effusion without hemodynamic instability, likely cancer related We will request records from [facility] DNR/DNI Awaiting placement Attestations Medical Necessity Statement*: Awaiting placement Time Spent in Patient Care: 30 Coding Level of Care Code Acute Code for Chg Fwd Diagnoses Spinous process fracture Bilateral pleural effusion J90 Fracture dislocation of costovertebral joint Squamous cell lung cancer C34.90 History of CVA (cerebrovascular accident) Z86.73 Pericardial effusion I31.39 Altered mental status R41.82 Delirium due to general medical condition F05 Compression fracture of thoracic vertebra S22.000A Lung cancer C34.90 Pleural effusion J90
[2022-05-13 16:53] LABS: Blood Urea Nitrogen 14 mg/dL (8-23); Calcium 8.3 mg/dL (8.5-10.5); Carbon Dioxide 23 mmol/L (22-29); Chloride 97 mmol/L (98-107); Glucose 116 mg/dL (65-115); Osmolality Calculated 275 mOsm/kg (285-295); Sodium 132 mmol/L (136-145)
[2022-05-13 17:05] LABS: Anion Gap 16.4 (5-19); Potassium 4.4 mmol/L (3.5-5.1)
[2022-05-13 17:52] LABS: Vitamin B12 1714 pg/mL (232-1245)
[2022-05-13] MEDS: memantine 5 mg tablet PO (18:07)
[2022-05-13 18:24] LABS: Lactate Dehydrogenase 331 U/L (135-214)
[2022-05-14] VITALS (9 sets, daily range): BP systolic 115–133; BP diastolic 70–83; PULSE 76–90; RESP 17–20; TEMP 36.3–36.6; O2SAT 94–100
[2022-05-14] MEDS: levoFLOXacin 750 mg Tablet PO (05:39)
[2022-05-14 06:13] LABS: Basophils % 0.2 %; Eosinophils % 0.5 %; Hematocrit 31.9 % (37.0-47.0); Hemoglobin 9.4 g/dL (11.5-15.3); Lymphocytes # 0.7 10^3/uL (0.8-4.8); Lymphocytes % 11.4 %; Mean Corpuscular HGB Conc 29.5 g/dL (30.0-36.0); Mean Corpuscular Hemoglobin 28.4 pg (28.0-34.0); Mean Corpuscular Volume 96.4 fl (81-99); Mean Platelet Volume 12.8 fL (7.4-10.4); Monocytes # 0.5 10^3/uL (0.2-0.9); Monocytes % 9.2 %; Neutrophils # 4.59 10^3/uL (1.8-7.7); Neutrophils % 77.9 %; Nucleated Red Blood Cells % 0 %; Platelet Count 116 10^3/cmm (130-400); Red Blood Count 3.31 10^6/uL (4.1-5.3); Red Cell Distribution Width 20.4 % (12.1-15.1); White Blood Count 5.9 10^3/uL (4.0-10.0)
[2022-05-14 06:28] LABS: Blood Urea Nitrogen 15 mg/dL (8-23); Calcium 8.1 mg/dL (8.5-10.5); Carbon Dioxide 27 mmol/L (22-29); Chloride 101 mmol/L (98-107); Glucose 119 mg/dL (65-115); Osmolality Calculated 286 mOsm/kg (285-295); Sodium 137 mmol/L (136-145)
--- NOTE | 2022-05-14 07:00 | MR_ITS ---
WS: [id number] MRI HEAD WITHOUT CONTRAST TECHNIQUE: Sagittal T1, T2 axial, T2 axial FLAIR, axial and coronal T1 images, axial susceptibility w eighted imaging, axial diffusion weighted images, and coronal T2 images were obtained. CLINICAL INFORMATION: Encephalopathy, lung cancer COMPARISON: None. FINDINGS: No evidence of restricted diffusion to suggest acute ischemia. Ventricular system and basal cisterns are patent. Moderate to advanced small vessel changes with moderate parenchymal volume loss. Encephal omalacia and gliosis involving the RIGHT parietal lobe posteriorly and LEFT temporal lobe posteriorly likely due to prior infarcts. Small amount of chronic hemosiderin in these areas. Normal posterior fossa. Normal vascular flow voids at the skull base. No extra-axial fluid collection s. No evidence of mass or mass effect. Paranasal sinuses are well aerated. Mild mucosal thickening in the LEFT mastoid air cells. Small vessel changes in the yefri.Normal optic chiasm and pituitary infun dibulum. Advanced symmetric atrophy temporal lobes and hippocampal formations. MR/MR head wo con* [id number] IMPRESSION: 1. No evidence of restricted diffusion to suggest acute ischemia. 2. Moderate to advanced small vessel changes with moderate parenchymal volume loss. 3. Chronic infarcts with encephalomalacia and gliosis involving the RIGHT leon etal lobe posteriorly and LEFT temporal lobe posteriorly. Associated hemosideri n in these areas. 4. Advanced symmetric atrophy involving the temporal lobes and hippocampal for mations. 5. Mild mucosal thickening in the LEFT mastoid air cells.
[2022-05-14 09:35] LABS: INR 1.64 (0.8-1.2)
[2022-05-14] MEDS: metoprolol tartrate 25 mg Tablet PO ×2 (10:29→20:50)
[2022-05-14] MEDS: calcium carb-vit d 600mg/400unit 1 Tablet 1 EACH PO (10:29)
[2022-05-14] MEDS: cholecalciferol (vitamin D3) 1,000 unit Tablet 1000 UNIT PO (10:29)
[2022-05-14] MEDS: atorvastatin 40 mg Tablet 80 MG PO (10:29)
[2022-05-14] MEDS: cetirizine 10 mg Tablet PO (10:29)
[2022-05-14] MEDS: memantine 5 mg tablet PO ×2 (10:30→17:51)
[2022-05-14] MEDS: pantoprazole 40 mg SDV IVP (10:30)
--- NOTE | 2022-05-14 12:32 | P.PN_ITS ---
Subjective Subjective: Seen this morning. States she feels okay. patient is sitting up in chair. Will be going for MRI today. Vitals/I&O/Wt Last Vital Signs Temp 97.5 F L 05/14/22 07:33 Pulse 90 05/14/22 08:00 Resp 17 05/14/22 07:33 BP 133/81 05/14/22 07:33 Pulse Ox 98 05/14/22 08:00 O2 Del Method 05/14/22 08:00 O2 Flow Rate 5 05/14/22 08:00 05/13/22 05/14/22 05/14/22 22:59 06:59 14:59 Intake Total 240 / 480 240 / 240 Balance 240 / 480 240 / 240 Physical Exam Narrative: Pleasant Oriented to place and person sitting up in chair appearing comfortable No active strokelike features Nonfocal neuro exam Euvolemic Abdomen soft S1, S2 Currently on 5 L nasal cannula Data 05/14/22 05:12 05/14/22 05:12 A&P Assessment and plan (1) Spinous process fracture: (2) Bilateral pleural effusion: (3) Fracture dislocation of costovertebral joint: (4) Squamous cell lung cancer: (5) History of CVA (cerebrovascular accident): (6) Pericardial effusion: (7) Altered mental status: (8) Delirium due to general medical condition: (9) Compression fracture of thoracic vertebra: (10) Lung cancer: (11) Pleural effusion: Plan 77-year-old female who carries history of squamous cell lung cancer as per the daughter cancer has been in remission, cancer doctor and PCP is at [facility], she was admitted for acute metabolic encephalopathy, her work-up has been unremarkable so far no signs of UTI, no signs of pneumonia, CT scan unremarkable, CT scan of spine showed multiple compression fractures, considering significant encephalomalacia at this could be initiation of dementia related symptoms, is not able to take care of her and requesting rehab placement and possible palliative care if she gets worse onwards, Is requesting if he can send images to [facility] physicians to compare, I will talk with PCP once the clinic is open to ask about her mentation Metabolic encephalopathy likely related to underlying dementia No significant signs of focal deficits Word finding difficulty To work with PT and OT Currently on dysphagia diet Poor p.o. intake Notable compression fracture with conservative management she never complained of pain from day 1 Left costovertebral junction fracture T5 T7 due to recent fall High risk for development of cauda equina not a good candidate for surgical intervention Bilateral pleural effusion left greater than right requested thoracentesis Chronic CVA: Pericardial effusion without hemodynamic instability, likely cancer related We will request records from [facility] TODAY DNR/DNI Awaiting placement Attestations Medical Necessity Statement*: Awaiting placement Time Spent in Patient Care: 30 Coding Level of Care Code Acute Code for Chg Fwd Diagnoses Spinous process fracture Bilateral pleural effusion J90 Fracture dislocation of costovertebral joint Squamous cell lung cancer C34.90 History of CVA (cerebrovascular accident) Z86.73 Pericardial effusion I31.39 Altered mental status R41.82 Delirium due to general medical condition F05 Compression fracture of thoracic vertebra S22.000A Lung cancer C34.90 Pleural effusion J90
[2022-05-15] VITALS (12 sets, daily range): BP systolic 101–131; BP diastolic 68–82; PULSE 77–88; RESP 16–20; TEMP 35.6–36.9; O2SAT 92–100
[2022-05-15] MEDS: levoFLOXacin 750 mg Tablet PO (05:32)
[2022-05-15 06:02] LABS: Basophils % 0.2 %; Eosinophils % 0.7 %; Hematocrit 30.4 % (37.0-47.0); Hemoglobin 9.3 g/dL (11.5-15.3); Lymphocytes # 0.7 10^3/uL (0.8-4.8); Lymphocytes % 11.8 %; Mean Corpuscular HGB Conc 30.6 g/dL (30.0-36.0); Mean Corpuscular Hemoglobin 28.3 pg (28.0-34.0); Mean Corpuscular Volume 92.4 fl (81-99); Mean Platelet Volume 11.9 fL (7.4-10.4); Monocytes # 0.6 10^3/uL (0.2-0.9); Monocytes % 10.1 %; Neutrophils # 4.33 10^3/uL (1.8-7.7); Neutrophils % 76.5 %; Nucleated Red Blood Cells % 0 %; Platelet Count 117 10^3/cmm (130-400); Red Blood Count 3.29 10^6/uL (4.1-5.3); Red Cell Distribution Width 20.8 % (12.1-15.1); White Blood Count 5.7 10^3/uL (4.0-10.0)
[2022-05-15 06:23] LABS: Blood Urea Nitrogen 13 mg/dL (8-23); Calcium 8.7 mg/dL (8.5-10.5); Carbon Dioxide 30 mmol/L (22-29); Chloride 101 mmol/L (98-107); Glucose 108 mg/dL (65-115); Magnesium 1.7 mg/dL (1.7-2.3); Osmolality Calculated 285 mOsm/kg (285-295); Sodium 137 mmol/L (136-145)
[2022-05-15] MEDS: cetirizine 10 mg Tablet PO (07:34)
[2022-05-15] MEDS: cholecalciferol (vitamin D3) 1,000 unit Tablet 1000 UNIT PO (07:34)
[2022-05-15] MEDS: memantine 5 mg tablet PO ×2 (07:34→17:00)
[2022-05-15] MEDS: calcium carb-vit d 600mg/400unit 1 Tablet 1 EACH PO (07:35)
[2022-05-15] MEDS: metoprolol tartrate 25 mg Tablet PO ×2 (07:35→21:07)
[2022-05-15] MEDS: atorvastatin 40 mg Tablet 80 MG PO (07:35)
--- NOTE | 2022-05-15 08:00 | US_ITS ---
WS: [id number] ULTRASOUND-GUIDED THORACENTESIS CLINICAL INFORMATION: left pl effussion COMPARISON: None. PROCEDURE: Informed consent: The risks, benefits, and alternatives of the procedure were discussed with the lorena ent. Verbal and written consent was obtained. Timeout: A timeout was performed to confirm the correct patient, procedure, and site. Site: LEFT chest Preparation: A suitable skin site was identified. The patient was prepped and draped in usual sterile fashion. Lidocaine 1% was used for local anesthesia. Catheter: 4 [place] One-Step catheter. Fluid Volume: 1000 ml Color: Clear yellow 50 cc sent to the laboratory for further analysis. Complications: No pneumothorax on the postthoracentesis radiograph. US/ thoracentesis [id number] IMPRESSION: Uncomplicated ultrasound-guided LEFT thoracentesis. Removal of 1000 cc
--- NOTE | 2022-05-15 08:20 | PC.SOCIAL ---
IMM not updated as patient is in OBS.
--- NOTE | 2022-05-15 09:25 | PC.SLP ---
Attempted to see patient twice this am but unable to rouse.
--- NOTE | 2022-05-15 09:39 | XR_ITS ---
WS: [id number] Portable AP upright chest, 05/15/2022 Clinical Data: post thora Comparison: Portable chest, 05/12/2022 Findings: The left pleural effusion has diminished significantly in size. There is a patchy opacity i n the periphery of the right lung. The heart is probably enlarged. The aortic arch is tortuous with c alcification. There is a left infusion catheter entering the subclavian vein and ending in the superi or vena cava. Monitor leads are on the chest wall. XR/XR chest 1V portable [id number] Impression: 1. Decrease in left pleural effusion. 2. No change in patchy opacity of the right lung and atherosclerosis.
[2022-05-15 10:52] LABS: Mononuclear %, Pleural Fluid 48 %; Mononuclear, Pleural Fluid # 0.041 10^3/uL; Polynuclear Cells, Pleural # 0.045 10^3/uL; Polynuclear Cells, Pleural % 52 %
[2022-05-15 10:53] LABS: Appearance, Pleural Fluid CLEAR (CLEAR); Color, Pleural Fluid Yellow (Pale Yellow)
[2022-05-15 10:54] LABS: Left Pleural Fluid Analysis Left Lung
[2022-05-15 10:58] LABS: LDH Pleural Fluid 98 U/L; Total Protein Pleural Fluid 2.9 g/dL
[2022-05-15] MEDS: pantoprazole 40 mg SDV IVP (11:31)
--- NOTE | 2022-05-15 15:36 | PM.PN ---
Subjective Subjective: This morning. Patient is pleasantly confused. She just had thoracentesis done on 1 L was removed. MRI done yesterday showed no evidence to suggest acute ischemia. Moderate to advanced small vessel changes with moderate parenchymal volume loss. Chronic infarct with encephalomalacia and gliosis involving the right parietal lobe posteriorly and left temporal lobe posteriorly. Advanced symmetric atrophy involving temporal lobes and hippocampal formations. Called patient's oncologist and discussed case and got updates. Patient has had a mildly elevated WBC count chronically along with mild lymphopenia on labs evidence at the oncologist office within the last year. She had a PET scan done in October 2021 which did not show any evidence of malignancy. She is to see the oncologist again on May 30 for repeat PET scan and follow-up visit. They also stated that patient had chemo done in January 2021 with Taxol and carboplatin and also had radiotherapy. No surgery. At this time there is no evidence of malignancy for now. Patient's most recent appointment was February 27, 2022 at oncology office. In regards to her mental status the very last phone visit notes do mention that patient was not doing so well due to her recent stroke however prior to that her mental status was okay and she was making her treatment decisions by herself. Patient's previous hospitalist , Also spoke with patient's primary care doctor and discussed her care. Vitals/I&O/Wt Last Vital Signs Temp 96.1 F L 05/15/22 12:00 Pulse 79 05/15/22 12:00 Resp 16 05/15/22 12:00 BP 131/73 05/15/22 12:00 Pulse Ox 100 05/15/22 12:00 O2 Del Method 05/15/22 12:00 O2 Flow Rate 5 05/15/22 12:00 Physical Exam Narrative: Pleasant, smiles occasionally. Oriented to self. 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 sitting up in chair appearing comfortable. Denies pain at this time. No active strokelike features Nonfocal neuro exam Euvolemic Abdomen soft S1, S2 Currently on 5 L nasal cannula Data 05/15/22 05:36 05/15/22 05:36 A&P Assessment and plan (1) Spinous process fracture: (2) Bilateral pleural effusion: (3) Fracture dislocation of costovertebral joint: (4) Squamous cell lung cancer: (5) History of CVA (cerebrovascular accident): (6) Pericardial effusion: (7) Altered mental status: (8) Delirium due to general medical condition: (9) Compression fracture of thoracic vertebra: (10) Lung cancer: (11) Pleural effusion: (12) Multi-infarct dementia: (13) Alzheimer disease: Plan 77-year-old female who carries history of squamous cell lung cancer as per the daughter cancer has been in remission, cancer doctor and PCP is at [facility], she was admitted for acute metabolic encephalopathy, her work-up has been unremarkable so far no signs of UTI, no signs of pneumonia, CT scan unremarkable, CT scan of spine showed multiple compression fractures, considering significant encephalomalacia at this could be initiation of dementia related symptoms, is not able to take care of her and requesting rehab placement and possible palliative care if she gets worse onwards, Discussed her care with PCP and oncology over the phone. It seems that patient has had a decline in recent here due to her stroke. We have also done an MRI here which shows encephalomalacia and changes in temporal lobe along with hippocampus. All septic work-up has been negative and infectious work-up has been negative. Patient is currently on a dysphagia diet. He does not have any gross focal neurological deficits. Does have word finding difficulty at times. She does have a notable compression fracture but has not complained of any pain to me. She was evaluated by physical therapy as well. Her insurance has denied residential home stay since patient is not able to follow commands completely when working with physical therapy as per physical therapy notes. Daughter was informed of this over the phone by case management today. They also tried to reach out to her but have not been able to get a hold of them yet. Thoracentesis was done today removed 1 L fluid. Cell cytology is pending at this time. She will need to follow-up outpatient with pulmonology in regards to that. Possibly a transudative effusion. Patient has poor oral intake. I believe due to patient's previous stroke and MRI findings and negative infectious work-up and other causes ruled out it seems that this could be early onset dementia. That would explain her decline and confusion. UTI has also been ruled out. She has been afebrile throughout her out hospital stay. Pericardial effusion without hemodynamic instability, likely cancer related. Discussed with on-call neurologist and reviewed MRI right ET scan images with her. Patient has multi-infarct dementia and Alzheimer's disease as evidenced by MRI. This most likely explains her confusion. Neurologist believes that patient will continue to decline. At this time we will start her on Namenda 5 mg once a day and titrate up to twice a day. She will follow-up with her primary care doctor hereafter. I will call patient's daughter and update her over the phone in regards to all the information above. DNR/DNI Awaiting placement Attestations Medical Necessity Statement*: Awaiting placement Time Spent in Patient Care: 60 Coding Level of Care Code Acute Code for Chg Fwd Diagnoses Spinous process fracture Bilateral pleural effusion J90 Fracture dislocation of costovertebral joint Squamous cell lung cancer C34.90 History of CVA (cerebrovascular accident) Z86.73 Pericardial effusion I31.39 Altered mental status R41.82 Delirium due to general medical condition F05 Compression fracture of thoracic vertebra S22.000A Lung cancer C34.90 Pleural effusion J90 Multi-infarct dementia F01.50 Alzheimer disease G30.9; F02.80
[2022-05-16] VITALS (8 sets, daily range): BP systolic 105–115; BP diastolic 71–77; PULSE 77–103; RESP 17; TEMP 36.6–37.2; O2SAT 92–99
--- NOTE | 2022-05-16 06:54 | PC.NURSE ---
pt confused, unable to follow instruction to take a drink or open mouth, multiple attempts made to administer levaquin without success.
[2022-05-16] MEDS: levoFLOXacin 750 mg Tablet PO (10:00)
[2022-05-16] MEDS: pantoprazole 40 mg SDV IVP (10:01)
[2022-05-16] MEDS: cholecalciferol (vitamin D3) 1,000 unit Tablet 1000 UNIT PO (10:01)
[2022-05-16] MEDS: atorvastatin 40 mg Tablet 80 MG PO (10:01)
[2022-05-16] MEDS: cetirizine 10 mg Tablet PO (10:01)
[2022-05-16] MEDS: memantine 5 mg tablet PO ×2 (10:01→17:21)
[2022-05-16] MEDS: calcium carb-vit d 600mg/400unit 1 Tablet 1 EACH PO (10:01)
[2022-05-16] MEDS: metoprolol tartrate 25 mg Tablet PO ×2 (10:01→20:42)
--- NOTE | 2022-05-16 11:58 | P.PN_ITS ---
Subjective Subjective: seen this am pleasantly confused eating breakfast this am with help of nurse Vitals/I&O/Wt Last Vital Signs Temp 98.3 F 05/16/22 11:45 Pulse 89 05/16/22 11:45 Resp 17 05/16/22 04:22 BP 105/71 05/16/22 11:45 Pulse Ox 92 05/16/22 11:45 O2 Del Method 05/16/22 08:00 O2 Flow Rate 3 05/16/22 08:00 05/15/22 05/16/22 05/16/22 22:59 06:59 14:59 Intake Total 60 / 60 60 / 120 Balance 60 / 60 60 / 120 Physical Exam Narrative: Pleasant, smiles occasionally. Oriented to self. sitting up in bed eating breakfast with help of the nurse sitting up in chair appearing comfortable. Denies pain at this time. No active strokelike features Nonfocal neuro exam Euvolemic Abdomen soft S1, S2 Currently on 5 L nasal cannula Data 05/15/22 05:36 05/15/22 05:36 Micro: Microbiology 05/09/22 05:34 Blood Culture - Final Blood Streptococcus salivarius 05/10/22 Unknown Blood Culture - Final Blood Streptococcus salivarius A&P Assessment and plan (1) Spinous process fracture: (2) Bilateral pleural effusion: (3) Fracture dislocation of costovertebral joint: (4) Squamous cell lung cancer: (5) History of CVA (cerebrovascular accident): (6) Pericardial effusion: (7) Altered mental status: (8) Delirium due to general medical condition: (9) Compression fracture of thoracic vertebra: (10) Lung cancer: (11) Pleural effusion: (12) Multi-infarct dementia: (13) Alzheimer disease: Plan 77-year-old female who carries history of squamous cell lung cancer as per the daughter cancer has been in remission, cancer doctor and PCP is at [facility], she was admitted for acute metabolic encephalopathy, her work-up has been unremarkable so far no signs of UTI, no signs of pneumonia, CT scan unrem arkable, CT scan of spine showed multiple compression fractures, considering significant encephalomalacia at this could be initiation of dementia related symptoms, is not able to take care of her and requesting rehab placement and possible palliative care if she gets worse onwards, Discussed her care with PCP and oncology over the phone. It seems that patient has had a decline in recent here due to her stroke. We have also done an MRI here which shows encephalomalacia and changes in temporal lobe along with hippocampus. All septic work-up has been negative and infectious work-up has been negative. Patient is currently on a dysphagia diet. He does not have any gross focal neurological deficits. Does have word finding difficulty at times. She does have a notable compression fracture but has not complained of any pain to me. She was evaluated by physical therapy as well. Her insurance has denied long-term home stay since patient is not able to follow commands comp letely when working with physical therapy as per physical therapy notes. Daughter was informed of this over the phone by case management today. They also tried to reach out to her but have not been able to get a hold of them yet. Thoracentesis was done today removed 1 L fluid. Cell cytology is pending at this time. She will need to follow-up outpatient with pulmonology in regards to that. Possibly a transudative effusion. Patient has poor oral intake. I believe due to patient's previous stroke and MRI findings and negative infectious work-up and other causes ruled out it seems that this could be early onset dementia. That would explain her decline and confusion. UTI has also been ruled out. She has been afebrile throughout her out hospital stay. Pericardial effusion without hemodynamic instability, likely cancer related. Discussed with on-call neurologist and reviewed MRI right ET scan images with her. Patient has multi-infarct dementia and Alzheimer's disease as evidenced by MRI. This most likely explains her confusion. Neurologist believes that patient will continue to decline. At this time we will start her on Namenda 5 mg once a day and titrate up to twice a day. She will follow-up with her primary care doctor hereafter. Daughter updated over phone. Blood culture positive for strep salivarius, most likely contaminant, patient has no clinical signs of infection, will repeat cultures. cultures obtained at admission turned positive day 4/5. Patient ready for discharge home vs NH. Will doscuss with family. DNR/DNI Awaiting placement Attestations Medical Necessity Statement*: pending placement Coding Level of Care Code Acute Code for Chg Fwd Diagnoses Spinous process fracture Bilateral pleural effusion J90 Fracture dislocation of costovertebral joint Squamous cell lung cancer C34.90 History of CVA (cerebrovascular accident) Z86.73 Pericardial effusion I31.39 Altered mental status R41.82 Delirium due to general medical condition F05 Compression fracture of thoracic vertebra S22.000A Lung cancer C34.90 Pleural effusion J90 Multi-infarct dementia F01.50 Alzheimer disease G30.9; F02.80
--- NOTE | 2022-05-16 12:24 | PC.OT ---
OT NOTE: PATIENT IS NOT ABLE TO APPROPRIATELY PARTICIPATE IN SKILLED OT TREATMENTS. MINIMAL PARTICIPATION NOTED DUE TO IMPAIRED COGNITION. PATIENT OFTEN CLOSES EYES AND DECLINES TO PARTICIPATE IN TREATMENT. D/C SKILLED OT SERVICES.
[2022-05-17] VITALS (11 sets, daily range): BP systolic 95–118; BP diastolic 63–78; PULSE 67–92; RESP 15–18; TEMP 36.4–36.5; O2SAT 93–100
--- NOTE | 2022-05-17 07:43 | P.PN_ITS ---
Subjective Subjective: seen thia am no acute events overnight patient pleasantly confused afebrile overnight Vitals/I&O/Wt Last Vital Signs Temp 97.7 F 05/17/22 04:00 Pulse 82 05/17/22 06:35 Resp 17 05/17/22 04:00 BP 95/63 05/17/22 04:00 Pulse Ox 93 05/17/22 04:00 O2 Del Method 05/17/22 04:00 O2 Flow Rate 3 05/16/22 19:35 05/16/22 05/17/22 05/17/22 22:59 06:59 14:59 Intake Total 240 / 360 120 / 480 Output Total 400 / 400 Balance -160 / -40 120 / 80 Physical Exam Narrative: Pleasant, smiles occasionally. Oriented to self. sitting up in bed today sitting up in chair appearing comfortable. Denies pain at this time. No active strokelike features Nonfocal neuro exam Euvolemic Abdomen soft S1, S2 Currently on 3 L nasal cannula Data 05/15/22 05:36 05/15/22 05:36 Micro: Microbiology 05/16/22 14:43 Blood Culture - Preliminary Blood SPECIMEN COLLECTED A&P Assessment and plan (1) Spinous process fracture: (2) Bilateral pleural effusion: (3) Fracture dislocation of costovertebral joint: (4) Squamous cell lung cancer: (5) History of CVA (cerebrovascular accident): (6) Pericardial effusion: (7) Altered mental status: (8) Delirium due to general medical condition: (9) Compression fracture of thoracic vertebra: (10) Lung cancer: (11) Pleural effusion: (12) Multi-infarct dementia: (13) Alzheimer disease: Plan 77-year-old female who carries history of squamous cell lung cancer as per the d jean paul cancer has been in remission, cancer doctor and PCP is at [facility], she was admitted for acute metabolic encephalopathy, her work-up has been unremarkable so far no signs of UTI, no signs of pneumonia, CT scan unremarkable, CT scan of spine showed multiple compression fractures, consi dering significant encephalomalacia at this could be initiation of dementia related symptoms, is not able to take care of her and requesting rehab placement and possible palliative care if she gets worse onwards, Discussed her care with PCP and oncology over the phone. It seems that patient has had a decline in recent here due to her stroke. We have also done an MRI here which shows encephalomalacia and changes in temporal lobe along with hippocampus. All septic work-up has been negative and infectious work-up has been negative. Patient is currently on a dysphagia diet. He does not have any gross focal neurological deficits. Does have word finding difficulty at times. She does have a notable compression fracture but has not complained of any pain to me. She was evaluated by physical therapy as well. Her insurance has denied nursing home home stay since patient is not able to follow commands completely when working with physical therapy as per physical therapy notes. Daughter was informed of this over the phone by case management today. They also tried to reach out to her but have not been able to get a hold of them yet. Thoracentesis was done today removed 1 L fluid. Cell cytology is pending at this time. She will need to follow-up outpatient with pulmonology in regards to that. Possibly a transudative effusion. Patient has poor oral intake. I believe due to patient's previous stroke and MRI findings and negative infectious work-up and other causes ruled out it seems that this could be early onset dementia. That would explain her decline and confusion. UTI has also been ruled out. She has been afebrile throughout her out hospital stay. Pericardial effusion without hemodynamic instability, likely cancer related. Discussed with on-call neurologist and reviewed MRI right ET scan images with her. Patient has multi-infarct dementia and Alzheimer's disease as evidenced by MRI. This most likely explains her confusion. Neurologist believes that patient will continue to decline. At this time we will start her on Namenda 5 mg once a day and titrate up to twice a day. She will follow-up with her primary care doctor hereafter. Blood culture positive for strep salivarius, most likely contaminant, patient has no clinical signs of infection, will repeat cultures. cultures obtained at admission turned positive day 4/5. -Discussed with biological lab technician. I was told by the biological lab technician that the blood sample obtained was through 1 IV site and the same sample was put into 3 different bottles. Lab stated this is most likely a contaminant. I have repeated blood cultures however. Discussed with infectious disease over the phone. Sensit ivities are susceptible for Levaquin and beta-lactam's. Will treat with 14 days of IV ceftriaxone. ID followup after discharge Discussed above findings with daughter on the phone. She tells me that patient has had some sort of spine infection 7 days ago where she was in the ICU for 1 month. She believes it was MRSA. Later on in 2021 she apparently had bacteremia. Her blood cultures were positive but she does not know which bacteria it was. She states she was placed on intramuscular Rocephin and sent to skilled nursing. Patient felt better and checked herself out of the nursing angella e at that point. She does not believe she finished that ceftriaxone. She says most of this work-up was done at [facility]. We will be requesting records. DNR/DNI Attestations Medical Necessity Statement*: pending placement. DC to NH in AM with IV ceftriaxone x14 days till may 27 Coding Level of Care Code Acute Code for Chg Fwd Diagnoses Spinous process fracture Bilateral pleural effusion J90 Fracture dislocation of costovertebral joint Squamous cell lung cancer C34.90 History of CVA (cerebrovascular accident) Z86.73 Pericardial effusion I31.39 Altered mental status R41.82 Delirium due to general medical condition F05 Compression fracture of thoracic vertebra S22.000A Lung cancer C34.90 Pleural effusion J90 Multi-infarct dementia F01.50 Alzheimer disease G30.9; F02.80
--- NOTE | 2022-05-17 07:46 | PC.NURSE ---
Bedside report received from Gloria RN this morning. Gloria and this nurse attempted to get patient to take her morning antibiotic. Patient would state yes that she would take it but then would not open her mouth to take a drink. when the straw was placed to her lips she would close her lips tight and shake her head.
--- NOTE | 2022-05-17 08:01 | PC.SOCIAL ---
IMM not updated as patient is in OBS.
[2022-05-17] MEDS: calcium carb-vit d 600mg/400unit 1 Tablet 1 EACH PO (10:46)
[2022-05-17] MEDS: cetirizine 10 mg Tablet PO (10:47)
[2022-05-17] MEDS: cholecalciferol (vitamin D3) 1,000 unit Tablet 1000 UNIT PO (10:47)
[2022-05-17] MEDS: memantine 5 mg tablet PO ×2 (10:47→17:42)
[2022-05-17] MEDS: atorvastatin 40 mg Tablet 80 MG PO (10:47)
[2022-05-17] MEDS: levoFLOXacin 750 mg Tablet PO (10:47)
[2022-05-17] MEDS: pantoprazole 40 mg SDV IVP (10:50)
[2022-05-17] MEDS: metoprolol tartrate 25 mg Tablet PO ×2 (10:51→20:18)
--- NOTE | 2022-05-17 10:56 | PC.CHAP ---
Pastoral Care Encounter/Spiritual Assessment Type of Contact [] Declined sleeve tailor visit [] Patient/Family/Request visit [] Outpatient visit [] Follow-up visit [] Physician referral [] Code/Alert [x] Routine visit [] Staff referral [] Actively dying [] Patient sleeping [] Family support [] [] Out of room [] Palliative care [] [x] Receiving care in room [] Pre-surgical visit [] Trauma [] Long length of stay [] ICU visit [] Other: Relational/Emotional Strength [] Patient feels connected with others/family/visitors/staff [] Distress [] Loneliness/isolation [] Abandonment Spirituality of Patient [] Person of Paulina [] Attends Islam of their [place]ina [] Believes in Prayer [] Reads Bible or Pentecostal materials [] There are Spiritual issues to be addressed Leave Manager Interventions [] Prayer [] Active listening [] Non-anxious presence [] Spiritual/emotional support [] Crisis/trauma care [] Spiritual counseling [] Bereavement support [] Provided bereavement packet [] Provided Bible/devotional materials [] Provided toy/stuffed animal, coloring book to patient or family member [] Provided Communion [] Anointing/[place] [] Salvation [] Completed spiritual assessment [] Other: Impact on Illness or Injury [] Angry [] Fearful [] Anxious [] Often cries [] Exhaustion [] Unable to work [] Unable to attend faith [] Unable to walk/stand [] Unable to read [] Unable to drive [] Unable to eat/drink [] Unable to sleep [] Unable to be with family [] Patient intubated [] Other: Summary unable to communate Time spent with patient 5 mins
[2022-05-17 11:25] LABS: SARS Covid-2 Antigen negative (Negative)
[2022-05-17 12:13] LABS: Basophils % 0.1 %; Eosinophils # 0.1 10^3/uL (0.0-0.8); Eosinophils % 0.7 %; Hematocrit 32.3 % (37.0-47.0); Hemoglobin 9.9 g/dL (11.5-15.3); Lymphocytes # 0.6 10^3/uL (0.8-4.8); Lymphocytes % 8.8 %; Mean Corpuscular HGB Conc 30.7 g/dL (30.0-36.0); Mean Corpuscular Hemoglobin 28.3 pg (28.0-34.0); Mean Corpuscular Volume 92.3 fl (81-99); Mean Platelet Volume 11.9 fL (7.4-10.4); Monocytes # 0.7 10^3/uL (0.2-0.9); Monocytes % 9.2 %; Neutrophils # 5.69 10^3/uL (1.8-7.7); Neutrophils % 80.5 %; Nucleated Red Blood Cells % 0 %; Platelet Count 146 10^3/cmm (130-400); Red Cell Distribution Width 21.3 % (12.1-15.1); White Blood Count 7.1 10^3/uL (4.0-10.0)
[2022-05-17] MEDS: cefTRIAXone 1,000 MG in sodium chloride 0.9% (plus) 50 ML 100 MG IV (14:22)
[2022-05-17 14:58] LABS: Lactate Dehydrogenase 207 U/L (135-214); Total Protein 5.3 g/dL (6.6-8.7)
--- NOTE | 2022-05-17 19:06 | PC.NURSE ---
Bedside report given to Sandra MALLOY at this time.
[2022-05-18] VITALS (8 sets, daily range): BP systolic 95–118; BP diastolic 62–79; PULSE 76–86; RESP 16–18; TEMP 36.4–36.6; O2SAT 96–100
--- NOTE | 2022-05-18 08:28 | P.DS_ITS ---
Discharge Providers Date of Admission: 05/10/22 00:28 Date of Discharge: May 18, 2022 Attending Provider at Admission: Anibal Godwin MD Attending Provider at Discharge: Marissa Ross MD Primary Care Provider: ERMELINDA MEJIA MD Diagnoses at Discharge Discharge Diagnosis (1) Spinous process fracture: Status: Acute (2) Bilateral pleural effusion: Status: Acute (3) Fracture dislocation of costovertebral joint: Status: Acute (4) Squamous cell lung cancer: Status: Acute (5) History of CVA (cerebrovascular accident): Status: Acute (6) Pericardial effusion: Status: Acute (7) Altered mental status: Status: Acute (8) Delirium due to general medical condition: Status: Acute (9) Compression fracture of thoracic vertebra: Status: Acute (10) Lung cancer: Status: Acute (11) Pleural effusion: Status: Acute (12) Multi-infarct dementia: Status: Acute (13) Alzheimer disease: Status: Acute Reason for Visit Reason for Visit: AMS Discharge Data Studies Completed and Pending Completed Studies During Hospitalization Category Date Time Status CT cervical spin wo con* [id number] Stat Cat Scan 05/09/22 12:[address] chest wo con [id number] Stat Cat Scan 05/09/[address] head wo con* [id number] Stat Cat Scan 05/09/22 12:[address] thoracic spin wo con* [id number] Stat Cat Scan 05/09/22 12:51 Completed CXRP [XR chest 1V portable [id number]] Urgent Exams 05/15/22 09:39 Completed XR chest 1V portable [id number] Routine Exams 05/12/22 15:26 Completed MR head wo con* [id number] Routine MRI 05/14/22 07:00 Completed CV carotid duplex BI* [id number] Stat Ultrasound 05/09/22 21:21 Completed CV. echo complete* [id number] Stat Ultrasound 05/09/22 21:21 Completed US gall bladder [id number] Stat Ultrasound 05/09/22 17:42 Completed US thoracentesis [id number] Routine Ultrasound 05/15/22 08:00 Completed Pending at discharge Category Date Time Status Blood Culture Stat Lab 05/16/22 11:48 Results Blood Culture Stat Lab 05/17/22 11:47 Results Radiology Impressions Chest CT 05/09/22 00:00 IMPRESSION: 1. Moderate pericardial effusion. 2. Moderate LEFT and small RIGHT pleural effusions with compressive atelectasis. 3. Mid thoracic spine compression fractures described on the thoracic spine CT. 4. LEFT costovertebral joint fractures at T6, T7, and T8. 5. Nondisplaced fractures of the tips of the spinous processes at T6 and T7. Cervical Spine CT 05/09/22 12:51 IMPRESSION: 1. No evidence of acute fracture or dislocation. 2. Partially visualized fluid opacification of the LEFT lung apex. Chest CT is pending. Head CT 05/09/22 12:51 IMPRESSION: 1. No evidence of intracranial hemorrhage or mass effect. 2. Moderate small vessel changes. Moderate parenchymal volume loss. 3. Intracranial vascular calcification. 4. Chronic encephalomalacia at the RIGHT frontoparietal junction near the vertex and LEFT parietal occipital junction consistent with chronic infarcts. 5. No acute intracranial findings. Thoracic Spine CT 05/09/22 12:51 IMPRESSION: 1. Acute compression fractures T6, T7, T8, and T10 vertebral bodies worse at T8 with biconcave compression loss of approximately 50% vertebral body height. 2. No significant retropulsion. No significant central canal stenosis. 3. Partially visualized LEFT greater than RIGHT pleural effusions. 4. LEFT costovertebral junction fractures at T5-T7. Gallbladder Ultrasound 05/09/22 17:42 IMPRESSION: No acute sonographic findings. Head MRI 05/14/22 07:00 IMPRESSION: 1. No evidence of restricted diffusion to suggest acute ischemia. 2. Moderate to advanced small vessel changes with moderate parenchymal volume loss. 3. Chronic infarcts with encephalomalacia and gliosis involving the RIGHT parietal lobe posteriorly and LEFT temporal lobe posteriorly. Associated hemosiderin in these areas. 4. Advanced symmetric atrophy involving the temporal lobes and hippocampal formations. 5. Mild mucosal thickening in the LEFT mastoid air cells. Thoracentesis Ultrasound 05/15/22 08:00 IMPRESSION: Uncomplicated ultrasound-guided LEFT thoracentesis. Removal of 1000 cc Chest X-Ray 05/15/22 09:39 Impression: 1. Decrease in left pleural effusion. 2. No change in patchy opacity of the right lung and atherosclerosis. Laboratory Results WBC 7.1 10^3/uL (4.0-10.0) 05/17/22 11:47 Corrected WBC Cancelled 05/13/22 16:25 RBC 3.50 10^6/uL (4.1-5.3) L 05/17/22 11:47 Hgb 9.9 g/dL (11.5-15.3) L 05/17/22 11:47 Hct 32.3 % (37.0-47.0) L 05/17/22 11:47 MCV 92.3 fl (81-99) 05/17/22 11:47 MCH 28.3 pg (28.0-34.0) 05/17/22 11:47 MCHC 30.7 g/dL (30.0-36.0) 05/17/22 11:47 RDW 21.3 % (12.1-15.1) H 05/17/22 11:47 Plt Count 146 10^3/cmm (130-400) 05/17/22 11:47 MPV 11.9 fL (7.4-10.4) H 05/17/22 11:47 Gran % Cancelled 05/13/22 16:25 Neut % (Auto) 80.5 % 05/17/22 11:47 Lymph % (Auto) 8.8 % 05/17/22 11:47 Stone % (Auto) 9.2 % 05/17/22 11:47 Eos % (Auto) 0.7 % 05/17/22 11:47 Baso % (Auto) 0.1 % 05/17/22 11:47 Neut # (Auto) 5.69 10^3/uL (1.8-7.7) 05/17/22 11:47 Lymph # (Auto) 0.6 10^3/uL (0.8-4.8) L 05/17/22 11:47 Stone # (Auto) 0.7 10^3/uL (0.2-0.9) 05/17/22 11:47 Eos # (Auto) 0.1 10^3/uL (0.0-0.8) 05/17/22 11:47 Baso # (Auto) 0.0 10^3/uL (0.0-0.1) 05/17/22 11:47 Absolute Gran (auto) Cancelled 05/13/22 16:25 Nucleated RBC % (auto) 0 % 05/17/22 11:47 Nucleated RBCs # 0.0 /100WBC 05/17/22 11:47 ESR 11 mm/hr (0-15) 05/10/22 14:36 PT 19.70 SECONDS (12.1-14.9) H 05/14/22 08:31 INR 1.64 (0.8-1.2) H 05/14/22 08:31 APTT 33.4 SECONDS (23.9-36.7) 05/09/22 15:00 D-Dimer 4.49 ug/mIFEU (0-0.59) H 05/09/22 22:23 Sodium 137 mmol/L (136-145) 05/15/22 05:36 Potassium 4.0 mmol/L (3.5-5.1) 05/15/22 05:36 Chloride 101 mmol/L (98-107) 05/15/22 05:36 Carbon Dioxide 30 mmol/L (22-29) H 05/15/22 05:36 Anion Gap 10.0 (5-19) 05/15/22 05:36 BUN 13 mg/dL (8-23) 05/15/22 05:36 Creatinine 0.7 mg/dL (0.5-0.9) 05/15/22 05:36 GFR Calculation Not Reportable 05/15/22 05:36 Glucose 108 mg/dL (65-115) 05/15/22 05:36 POC Glucose 89 mg/dL (70-110) 05/09/22 12:30 Estimat Average Glucose 123 05/09/22 22:23 Hemoglobin A1c 5.9 % (4.0-6.0) 05/09/22 22:23 Calculated Osmolality 285 mOsm/kg (285-295) 05/15/22 05:36 Lactic Acid 1.5 mmol/L (0.5-2.2) 05/09/22 22:23 Calcium 8.7 mg/dL (8.5-10.5) 05/15/22 05:36 Magnesium 1.7 mg/dL (1.7-2.3) 05/15/22 05:36 Total Bilirubin 1.9 mg/dL (0.15-1.2) H 05/09/22 15:00 AST 47 U/L (0-32) H 05/09/22 15:00 ALT 32 U/L (0-33) 05/09/22 15:00 Alkaline Phosphatase 120 U/L (35-105) H 05/09/22 15:00 Ammonia 20 umol/L (11-51) 05/09/22 15:00 Lactate Dehydrogenase 207 U/L (135-214) 05/17/22 11:47 Troponin T Baseline 24 ng/L (0-10) H 05/09/22 22:23 Troponin T 120 Minute Cancelled 05/10/22 05:34 Delta Troponin T Cancelled 05/10/22 05:34 Troponin T Hi Sens 6Hr 22.70 ng/L (0-10) H 05/10/22 05:34 Troponin T Hi Sens 6Hr Delta -1.30 ng/L (0-12) L 05/10/22 05:34 C-Reactive Protein 56.5 mg/L (0.0-4.9) H 05/09/22 22:23 NT-Pro-B Natriuret Pep 4301 pg/mL (0-450) H 05/09/22 22:23 Total Protein 5.3 g/dL (6.6-8.7) L 05/17/22 11:47 Albumin 4.3 g/dL (3.5-5.2) 05/09/22 15:00 Globulin 3.3 g/dL (1.3-4.6) 05/09/22 15:00 Vitamin B12 1714 pg/mL (232-1245) H 05/13/22 15:32 Procalcitonin 0.72 ng/mL (0-0.5) H 05/09/22 22:23 TSH 2.44 uIU/mL (0.27-4.20) 05/09/22 22:23 Urine Color Yellow (Yellow) 05/09/22 19:09 Urine Appearance Clear (CLEAR) 05/09/22 19:09 Urine pH 6 (5-7) 05/09/22 19:09 Ur Specific [place] 1.025 (1.005-1.030) 05/09/22 19:09 Urine Protein 1+ (Negative) H 05/09/22 19:09 Urine Glucose (UA) Norm (Normal) 05/09/22 19:09 Urine Ketones 1+ (Negative) H 05/09/22 19:09 Urine Blood 2+ (Negative) H 05/09/22 19:09 Urine Nitrate Negative (Negative) 05/09/22 19:09 Urine Bilirubin 1+ (Negative) H 05/09/22 19:09 Urine Urobilinogen 4 mg/dL (Negative) H 05/09/22 19:09 Ur Leukocyte Esterase Negative (Negative) 05/09/22 19:09 Urine RBC None /hpf (0-2) 05/09/22 19:09 Urine WBC 0-4 /hpf (0-5) H 05/09/22 19:09 Ur Squamous Epith Cells 0-4 /hpf (0-5) H 05/09/22 19:09 Amorphous Sediment Not Reportable 05/09/22 19:09 Urine Bacteria Trace /hpf (NONE) 05/09/22 19:09 Hyaline Casts 0-4 /lpf H 05/09/22 19:09 Urine Mucus Trace /hpf 05/09/22 19:09 Pleural Color Yellow (Pale Yellow) H 05/15/22 09:41 Pleural Appearance Clear (CLEAR) 05/15/22 09:41 Pleural pH 8.00 (6.5-7.5) H 05/15/22 09:41 Pleural WBC 86.000 /uL (0-1000) 05/15/22 09:41 Pleural RBC 0.000 10^3/uL 05/15/22 09:41 Pleural Mononuc # Auto 0.041 10^3/uL 05/15/22 09:41 Pleural Polynuclear % 52 % 05/15/22 09:41 Pleural Polynuclear # 0.045 10^3/uL 05/15/22 09:41 Pleural Mononuclear % 48 % 05/15/22 09:41 Pleural Other Cells Lt Left lung 05/15/22 09:41 Pleural Total Protein 2.9 g/dL 05/15/22 09:41 Pleural LDH 98 U/L 05/15/22 09:41 Pleural Glucose 108.0 mg/dL 05/15/22 09:41 Ethyl Alcohol < 10 mg/dL (0-10) 05/09/22 15:00 SARS-CoV-2 Ag (Rapid) negative (Negative) 05/17/22 11:00 Misc Test Reference Cancelled 05/10/22 14:36 Vitals Last Vital Signs Temp 97.6 F 05/18/22 04:00 Pulse 83 05/18/22 05:28 Resp 16 05/18/22 04:00 BP 118/79 05/18/22 04:00 Pulse Ox 99 05/18/22 04:00 O2 Del Method 05/18/22 04:00 O2 Flow Rate 3 05/18/22 00:00 Discharge Plan Discharge Patient Disposition: Xfer SNF Condition: Stable Prescriptions: No Action estradiol [Vagifem] 10 mcg tablet 10 mcg vaginal Q7D cetirizine [Zyrtec] 10 mg tablet 10 mg PO DAILY meloxicam 7.5 mg tablet 7.5 mg PO BID alendronate 70 mg tablet 70 mg PO Q7D Probiotic 10 billion cell capsule 10,000 mmu cells PO DAILY Rx Instructions: administer with a meal calcium carbonate [Calcium 600] 600 mg calcium (1,500 mg) tablet 600 mg PO DAILY Prevagen 1 tab PO DAILY aspirin [Adult Aspirin Regimen] 81 mg tablet,delayed release (DR/EC) 81 mg PO DAILY Tussin DM Max 10-200 mg/5 mL liquid 10 ml PO Q8H PRN (Reason: Cough) cholecalciferol (vitamin D3) 25 mcg (1,000 unit) capsule 25 mcg PO DAILY fluticasone propion-salmeterol [Advair Diskus] 250-50 mcg/dose blister with device 1 inh inhalation BID benzonatate [Tessalon Perles] 100 mg capsule 100 mg PO TID PRN (Reason: cough) 30 Days Qty: 90 3RF prednisone 20 mg tablet 40 mg PO DAILY 5 Days Qty: 10 0RF Lipitor 80 mg Tablet 80 mg PO DAILY tramadol 50 mg Tablet 50 mg PO Q8H PRN (Reason: Pain) cyclobenzaprine 5 mg Tablet 5 mg PO DAILY PRN (Reason: Muscle Pain) metoprolol tartrate 25 mg tablet 25 mg PO DAILY Eliquis 5 mg Tablet 5 mg PO BID Referrals: [facility] [Outside] ERMELINDA MEJIA MD [Primary Care Provider] - Patient Instructions: Opioid Safety Coding Level of Care Code Acute Chg FW DC note Diagnoses Spinous process fracture Bilateral pleural effusion J90 Fracture dislocation of costovertebral joint Squamous cell lung cancer C34.90 History of CVA (cerebrovascular accident) Z86.73 Pericardial effusion I31.39 Altered mental status R41.82 Delirium due to general medical condition F05 Compression fracture of thoracic vertebra S22.000A Lung cancer C34.90 Pleural effusion J90 Multi-infarct dementia F01.50 Alzheimer disease G30.9; F02.80
[2022-05-18] MEDS: metoprolol tartrate 25 mg Tablet PO ×2 (09:56→21:39)
[2022-05-18] MEDS: cetirizine 10 mg Tablet PO (09:56)
[2022-05-18] MEDS: calcium carb-vit d 600mg/400unit 1 Tablet 1 EACH PO (09:57)
[2022-05-18] MEDS: cholecalciferol (vitamin D3) 1,000 unit Tablet 1000 UNIT PO (09:57)
[2022-05-18] MEDS: memantine 5 mg tablet PO ×2 (09:57→17:08)
[2022-05-18] MEDS: atorvastatin 40 mg Tablet 80 MG PO (09:57)
[2022-05-18] MEDS: pantoprazole 40 mg SDV IVP (10:24)
--- NOTE | 2022-05-18 11:55 | USCV_ITS ---
Jacqui Saavedra Age: 77 Gender: F : 1945 Exam Date: 05/18/2022 13:38 Ordering Phys: Marissa Ross MD Technologist: SANDHYA [place] [facility] [place]: r/o endocarditis BP: / HR: Rhythm: Sinus Technical Quality: Adequate MEASUREMENTS (Male / Female) Normal Values DOPPLER TR Peak Velocity 304.7 cm/s TR Peak Gradient 37.1 mmHg Right Atrial Pressure 9.0 mmHg Pulmonary Artery Systolic Pressu 46.1 mmHg FINDINGS Left Ventricle Normal left ventricular size, systolic function with no regional wall motion abnormalities. Left ventricular ejection fraction is estimated at 60 %. Right Ventricle Normal right ventricular size and systolic function. Right Atrium Right atrium not well visualized. Normal right atrial size. Left Atrium Normal left atrial size. Mitral Valve Structurally normal mitral valve. Aortic Valve Structurally normal trileaflet aortic valve. Tricuspid Valve Structurally normal tricuspid valve. Pulmonic Valve Pulmonic valve not well visualized. Pericardium Large circumferential pericardial effusion. No evidence of hemodynamic compromise. Left pleural effusion. Aorta Normal size aortic root and proximal ascending aorta. IVC Dilated IVC with normal respiratory variation. CONCLUSIONS 1. Normal left ventricular size, systolic function with no regional wall motion abnormalities. Left ventricular ejection fraction is estimated at 55-60 %. 2. Large circumferential pericardial effusion. No evidence of hemodynamic compromise. 3. When compared to study report dated 05/10/2022, pericardial effusion has increased in size. Estefania Shepherd MD (Electronically Signed) Final Date: 18 May 2022 21:57 S
[2022-05-18] MEDS: cefTRIAXone 1,000 MG in sodium chloride 0.9% (plus) 50 ML 100 MG IV (13:16)
--- NOTE | 2022-05-18 17:38 | PM.PN ---
Subjective Subjective: Seen and examined this morning. Sitting up in bed with at bedside. Pleasantly confused. Vitals/I&O/Wt Last Vital Signs Temp 97.5 F L 05/18/22 12:00 Pulse 79 05/18/22 12:00 Resp 18 05/18/22 12:00 BP 101/64 05/18/22 12:00 Pulse Ox 100 05/18/22 12:00 O2 Del Method 05/18/22 12:00 O2 Flow Rate 3 05/18/22 08:00 05/18/22 05/18/22 05/18/22 06:59 14:59 22:59 Intake Total 60 / 450 530 / 530 Balance 60 / 450 530 / 530 Physical Exam Narrative: Pleasant, smiles occasionally. Oriented to self. sitting up in bed today sitting up in bed appearing comfortable. Denies pain at this time. No active strokelike features Nonfocal neuro exam Euvolemic Abdomen soft S1, S2 Currently on 3 L nasal cannula Data 05/17/22 11:47 05/15/22 05:36 Micro: Microbiology 05/17/22 11:52 Blood Culture - Preliminary Blood NEGATIVE TO DATE 05/17/22 11:47 Blood Culture - Preliminary Blood 05/16/22 14:43 Blood Culture - Preliminary Blood NEGATIVE TO DATE A&P Assessment and plan (1) Spinous process fracture: (2) Bilateral pleural effusion: (3) Fracture dislocation of costovertebral joint: (4) Squamous cell lung cancer: (5) History of CVA (cerebrovascular accident): (6) Pericardial effusion: (7) Altered mental status: (8) Delirium due to general medical condition: (9) Compression fracture of thoracic vertebra: (10) Lung cancer: (11) Pleural effusion: (12) Multi-infarct dementia: (13) Alzheimer disease: Plan 77-year-old female who carries history of squamous cell lung cancer as per the daughter cancer has been in remission, cancer doctor and PCP is at [facility], she was admitted for acute metabolic encephalopathy, her work-up has been unremarkable so far no signs of UTI, no signs of pneumonia, CT scan unremarkable, CT scan of spine showed multiple compression fractures, considering significant encephalomalacia at this could be initiation of dementia related symptoms, is not able to take care of her and requesting rehab placement and possible palliative care if she gets worse onwards, #Multi-infarct dementia #Altered mental status #History of recurrent bacteremia #Has Port-A-Cath #Persistent bacteremia #Blood culture positive for strep sella various, repeat cultures positive ? Check echo to rule out endocarditis ? Check CT lumbar spine ? Consult ID on Saturday ? Continue IV ceftriaxone in the meantime. ? Repeat blood cultures every 48 hours ? Patient will need prolonged IV antibiotics depending upon source. ? Suspicion that port may be infected. We may consider removal of that. ? Request records from [facility] ? Please see previous progress notes for details on previous work-up so far. DNR/DNI Attestations Medical Necessity Statement*: Has positive blood cultures and repeat are positive as well. We will need to stay in the hospital until clearance and isolation of source. Will require prolonged IV antibiotics. Coding Level of Care Code Acute Code for Chg Fwd Diagnoses Spinous process fracture Bilateral pleural effusion J90 Fracture dislocation of costovertebral joint Squamous cell lung cancer C34.90 History of CVA (cerebrovascular accident) Z86.73 Pericardial effusion I31.39 Altered mental status R41.82 Delirium due to general medical condition F05 Compression fracture of thoracic vertebra S22.000A Lung cancer C34.90 Pleural effusion J90 Multi-infarct dementia F01.50 Alzheimer disease G30.9; F02.80
[2022-05-19] VITALS (10 sets, daily range): BP systolic 94–122; BP diastolic 57–78; PULSE 72–96; RESP 16–18; TEMP 36.4–37.1; O2SAT 90–98
[2022-05-19 03:38] LABS: Basophils % 0.3 %; Eosinophils # 0.1 10^3/uL (0.0-0.8); Hematocrit 33.2 % (37.0-47.0); Hemoglobin 9.9 g/dL (11.5-15.3); Lymphocytes # 0.6 10^3/uL (0.8-4.8); Lymphocytes % 9.7 %; Mean Corpuscular HGB Conc 29.8 g/dL (30.0-36.0); Mean Corpuscular Hemoglobin 28.3 pg (28.0-34.0); Mean Corpuscular Volume 94.9 fl (81-99); Monocytes # 0.6 10^3/uL (0.2-0.9); Monocytes % 9.5 %; Neutrophils % 78.9 %; Nucleated Red Blood Cells % 0 %; Platelet Count 120 10^3/cmm (130-400); Red Cell Distribution Width 21.6 % (12.1-15.1); White Blood Count 6.2 10^3/uL (4.0-10.0)
[2022-05-19 04:06] LABS: Anion Gap 11.7 (5-19); Blood Urea Nitrogen 14 mg/dL (8-23); Calcium 8.6 mg/dL (8.5-10.5); Carbon Dioxide 27 mmol/L (22-29); Chloride 101 mmol/L (98-107); Glucose 151 mg/dL (65-115); Magnesium 1.9 mg/dL (1.7-2.3); Osmolality Calculated 285 mOsm/kg (285-295); Potassium 3.7 mmol/L (3.5-5.1); Sodium 136 mmol/L (136-145)
--- NOTE | 2022-05-19 08:11 | XRR_ITS ---
PROCEDURE INFORMATION: Exam: XR Chest Exam date and time: 05/19/2022 8:34 AM Age: 77 years old Clinical indication: Other: Pleural effusion TECHNIQUE: Imaging protocol: Radiologic exam of the chest. Views: 1 view. COMPARISON: CR XR chest 1V portable [id number] 05/15/2022 9:45 AM FINDINGS: Tubes, catheters and devices: Stable [id number]. Lungs: Worsening left base consolidation. Stable right mid lung infiltrate possibly chronic. Pleural spaces: There is worsening left pleural effusion. Heart/Mediastinum: Cardiomegaly. Bones/joints: Unremarkable. Other findings: Enlarging but small right effusion. XR/XR chest 1V portable [id number] IMPRESSION: 1. Worsening left lung. 2. Worsening effusions.
[2022-05-19] MEDS: atorvastatin 40 mg Tablet 80 MG PO (09:00)
[2022-05-19] MEDS: cetirizine 10 mg Tablet PO (09:01)
[2022-05-19] MEDS: cholecalciferol (vitamin D3) 1,000 unit Tablet 1000 UNIT PO (09:01)
[2022-05-19] MEDS: memantine 5 mg tablet PO ×2 (09:01→16:57)
[2022-05-19] MEDS: calcium carb-vit d 600mg/400unit 1 Tablet 1 EACH PO (09:01)
[2022-05-19] MEDS: pantoprazole 40 mg SDV IVP (09:04)
[2022-05-19] MEDS: metoprolol tartrate 25 mg Tablet PO ×2 (09:07→21:48)
[2022-05-19] MEDS: vancomycin 1,000 MG in sodium chloride 0.9% 250 ML 250 MG IV (11:43)
[2022-05-19 11:57] LABS: Procalcitonin 0.06 ng/mL (0-0.5)
[2022-05-19] MEDS: piperacillin-tazobactam 3.375 GM in sodium chloride 0.9% (plus) 50 ML IV ×2 (13:54→21:48)
--- NOTE | 2022-05-19 14:36 | P.PN_ITS ---
Subjective Subjective: Seen this AM. Patient is still confused. Daughter and at bedside. He is on 3 L nasal cannula. Repeat blood cultures positive for gram-positive cocci in clusters. Patient is on IV ceftriaxone White count 6.2 afebrile overnight. Echo did show large pericardial effusion and chest x-ray today showed worsening pleural effusion. Discussed imaging with pulmonology. 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 Vitals/I&O/Wt Last Vital Signs Temp 97.9 F 05/19/22 12:00 Pulse 85 05/19/22 12:00 Resp 18 05/19/22 12:00 BP 107/73 05/19/22 12:00 Pulse Ox 96 05/19/22 12:00 O2 Del Method 05/19/22 12:00 O2 Flow Rate 3 05/19/22 08:00 05/18/22 05/19/22 05/19/22 22:59 06:59 14:59 Intake Total 240 / 770 200 / 970 450 / 450 Output Total 0 / 0 Balance 240 / 770 200 / 970 450 / 450 Physical Exam Narrative: Pleasant, smiles occasionally. Oriented to self. sitting up in bed today sitting up in bed appearing comfortable. Denies pain at this time. No active strokelike features Nonfocal neuro exam Euvolemic Abdomen soft S1, S2 Currently on 3 L nasal cannula Data 05/19/22 02:49 05/19/22 02:49 Micro: Microbiology 05/17/22 11:47 Blood Culture - Preliminary Blood 05/17/22 11:52 Blood Culture - Preliminary Blood NEGATIVE TO DATE A&P Assessment and plan (1) Spinous process fracture: (2) Bilateral pleural effusion: (3) Fracture dislocation of costovertebral joint: (4) Squamous cell lung cancer: (5) History of CVA (cerebrovascular accident): (6) Pericardial effusion: (7) Altered mental status: (8) Delirium due to general medical condition: (9) Compression fracture of thoracic vertebra: (10) Lung cancer: (11) Pleural effusion: (12) Multi-infarct dementia: (13) Alzheimer disease: Plan 77-year-old female who carries history of squamous cell lung cancer as per the daughter cancer has been in remission, cancer doctor and PCP is at [facility], she was admitted for acute metabolic encephalopathy, her work-up has been unremarkable so far no signs of UTI, no signs of pneumonia, CT scan unremarkable, CT scan of spine showed multiple compression fractures, considering significant encephalomalacia at this could be initiation of dementia related symptoms, is not able to take care of her and requesting rehab placement and possible palliative care if she gets worse onwards, #Multi-infarct dementia #Altered mental status #History of recurrent bacteremia #Has Port-A-Cath #Recent acute blood loss anemia, friable polyp removed. #Persistent positive blood cultures. #Blood culture positive for strep sella various, repeat cultures positive #History of radiation pneumonitis #History of lung cancer status post chemo and radiation, most recent PET scan showed no malignancy as per oncology. #History of recurrent pleural effusion on left side?chronic and stable #Large pericardial effusion, no hemodynamic compromise #Advanced age ? Transthoracic echo did not show endocarditis however showed a large pericardial effusion with no evidence of tamponade. ? Consult ID on Saturday ? Placed on vancomycin and Zosyn. ? Repeat blood cultures every 48 hours ? Patient will need prolonged IV antibiotics depending upon source. ? Suspicion that port may be infected. We may consider removal of that. We will wait for second cultures to speciate. ? Request records from [facility]. Discussed with nursing staff. We will follow-up in wound care records for Saturday. ? Please see previous progress notes for details on previous work-up so far. -Had a long discussion with patient's daughter and at bedside. Patient and family have already made a decision that even if her cancer has recurred they are not interested in any further chemo or radiation. Patient also made a decision to be DNR/DNI and family agrees that. ? Her pleural effusion has been chronic and has a trapped lung. It recurred pretty fast after her thoracentesis. We will not do further thoracentesis at this point. ? Daughter states that patient has had bacteremia before in January but did not complete her treatment. She had bacteremia before that as well. She says all her records are at [facility]. We have requested records but will not get them before Saturday due to being the weekend. ? Patient's daughter and did suggest to transfer patient to another hospital where they would have infectious disease services however [facility] also does not have ID over the weekend. They did prefer [facility] because her onco logist and forgeman helper were there. We also tried [facility] and there is a waiting list for 3 days. After another discussion with family it was decided to keep the patient here and to have her see ID on Saturday. Patient is hemodynamically stable at this time. She is saturating on 3 L nasal cannula. Previously her baseline was 5 L. ? Patient and are considering hospice after we treat this current infection which has not on lower source at this point. I did discuss with him regarding removal of the port but they would like infectious disease doctors opinion on it. ? Patient's clearly states that patient's mental status was not completely normal at home as well but she was also never this much confused. It is hard for him to tell whether this is all due to infection or her advancing dementia. ? I did show patient's and daughter her x-ray images and MRI. ? For now decision has been made to keep her on broad-spectrum antibiotics and have her seen by infectious disease on Saturday. At that point they will further decide what to do ? Hospice consult already ordered. ? Continue to hold Eliquis due to recent acute blood loss anemia. ? Patient and daughter do understand that if patient does deteriorate before she seen her infectious disease then according to patient's wishes and family's wishes we will let her progress naturally. -Lastly patient's does state that he does not want any thing traumatic done to her. He cannot explain it further but I believe he meant he does not want aggressive measures. We can clarify this with him again. DNR/DNI DVT prophylaxis: SCDs. Attestations Medical Necessity Statement*: Has positive blood cultures and repeat are positive as well. We will need to stay in the hospital until clearance and isolation of source. Will require prolonged IV antibiotics. Time Spent in Patient Care: Greater than 35 minutes I spent almost 1 hour with the family in counseling and going over patient's care and findings of all the studies we have done so far. Coding Level of Care Code Acute Code for Chg Fwd Diagnoses Spinous process fracture Bilateral pleural effusion J90 Fracture dislocation of costovertebral joint Squamous cell lung cancer C34.90 History of CVA (cerebrovascular accident) Z86.73 Pericardial effusion I31.39 Altered mental status R41.82 Delirium due to general medical condition F05 Compression fracture of thoracic vertebra S22.000A Lung cancer C34.90 Pleural effusion J90 Multi-infarct dementia F01.50 Alzheimer disease G30.9; F02.80
[2022-05-20] VITALS (9 sets, daily range): BP systolic 98–118; BP diastolic 53–86; PULSE 78–110; RESP 16–17; TEMP 36.3–36.7; O2SAT 91–99
[2022-05-20] MEDS: vancomycin 1,000 MG in sodium chloride 0.9% 250 ML 250 MG IV (03:52)
[2022-05-20 04:44] LABS: Blood Urea Nitrogen 13 mg/dL (8-23); Calcium 8.2 mg/dL (8.5-10.5); Carbon Dioxide 25 mmol/L (22-29); Chloride 104 mmol/L (98-107); Glucose 117 mg/dL (65-115); Osmolality Calculated 291 mOsm/kg (285-295); Sodium 140 mmol/L (136-145)
[2022-05-20 04:52] LABS: Anion Gap 14.9 (5-19); Potassium 3.9 mmol/L (3.5-5.1)
[2022-05-20] MEDS: piperacillin-tazobactam 3.375 GM in sodium chloride 0.9% (plus) 50 ML IV ×3 (04:58→21:32)
[2022-05-20 06:10] LABS: Basophils % 0.3 %; Eosinophils % 0.7 %; Hematocrit 31.5 % (37.0-47.0); Hemoglobin 9.4 g/dL (11.5-15.3); Lymphocytes # 0.6 10^3/uL (0.8-4.8); Lymphocytes % 10.5 %; Mean Corpuscular HGB Conc 29.8 g/dL (30.0-36.0); Mean Corpuscular Hemoglobin 27.9 pg (28.0-34.0); Mean Corpuscular Volume 93.5 fl (81-99); Monocytes # 0.6 10^3/uL (0.2-0.9); Monocytes % 9.8 %; Neutrophils # 4.45 10^3/uL (1.8-7.7); Neutrophils % 77.7 %; Nucleated Red Blood Cells % 0 %; Platelet Count 125 10^3/cmm (130-400); Red Blood Count 3.37 10^6/uL (4.1-5.3); Red Cell Distribution Width 21.5 % (12.1-15.1); White Blood Count 5.7 10^3/uL (4.0-10.0)
[2022-05-20] MEDS: calcium carb-vit d 600mg/400unit 1 Tablet 1 EACH PO (08:19)
[2022-05-20] MEDS: memantine 5 mg tablet PO ×2 (08:19→17:35)
[2022-05-20] MEDS: pantoprazole 40 mg SDV IVP (08:19)
[2022-05-20] MEDS: cholecalciferol (vitamin D3) 1,000 unit Tablet 1000 UNIT PO (08:19)
[2022-05-20] MEDS: cetirizine 10 mg Tablet PO (08:19)
[2022-05-20] MEDS: atorvastatin 40 mg Tablet 80 MG PO (08:19)
[2022-05-20] MEDS: sodium chloride 0.9% 250 ML IV (08:35)
[2022-05-20 09:23] LABS: ABG PCO2 42.1 mmHg (35-45); ABG PH Result 7.44 (7.35-7.45); Alveolar-Arterial Oxygen Gradi 3.9 mmHg (5-10); Arterial Blood Gas Hematocrit 31.1 % (37-47); Base Excess ABG 3.9 mmol/L (-2.0-2.0); Blood Gas Allen Test Pos; Blood Gas Operator Identificat WALCI; Blood Gas Sample Site Radial, right; Blood Gas Sample Type Arterial; Carboxyhemoglobin 1.9 %THgb (0.4-20.1); HCO3 ABG 28.5 mmol/L (22-26); HGB O2 Sat 91.2 % (95-100); Ionized Calcium Level - ABG 1.2 mmol/L (1.1-1.4); Oxygen Device NC; PO2 ABG 67.3 mmHg (80.0-100.0); Potassium Level - ABG 3.3 mmol/L (3.5-5.0); Total Hemoglobin 10.1 g/dL (12-16)
--- NOTE | 2022-05-20 12:21 | PM.PN ---
Subjective Subjective: seen this am confused as yesterday no changes did have breakfast this am Vitals/I&O/Wt Last Vital Signs Temp 97.7 F 05/20/22 12:00 Pulse 85 05/20/22 12:00 Resp 16 05/20/22 12:00 BP 103/69 05/20/22 12:00 Pulse Ox 98 05/20/22 12:00 O2 Del Method 05/20/22 12:00 O2 Flow Rate 3 05/20/22 08:43 05/19/22 05/20/22 05/20/22 22:59 06:59 14:59 Intake Total 650 / 1300 300 / 1600 380 / 380 Balance 650 / 1300 300 / 1600 380 / 380 Physical Exam Narrative: Pleasant, smiles occasionally. Oriented to self. sitting up in bed today sitting up in bed appearing comfortable. Denies pain at this time. No active strokelike features Nonfocal neuro exam Euvolemic Abdomen soft S1, S2 Currently on 3 L nasal cannula Data 05/20/22 05:54 05/20/22 02:38 A&P Assessment and plan (1) Spinous process fracture: (2) Bilateral pleural effusion: (3) Fracture dislocation of costovertebral joint: (4) Squamous cell lung cancer: (5) History of CVA (cerebrovascular accident): (6) Pericardial effusion: (7) Altered mental status: (8) Delirium due to general medical condition: (9) Compression fracture of thoracic vertebra: (10) Lung cancer: (11) Pleural effusion: (12) Multi-infarct dementia: (13) Alzheimer disease: Plan 77-year-old female who carries history of squamous cell lung cancer as per the daughter cancer has been in remission, cancer doctor and PCP is at [facility], she was admitted for acute metabolic encephalopathy, her work-up has been unremarkable so far no signs of UTI, no signs of pneumonia, CT scan unremarkable, CT scan of spine showed multiple compression fractures, considering significant encephalomalacia at this could be initiation of dementia related symptoms, is not able to take care of her and requesting rehab placement and possible palliative care if she gets worse onwards, #Multi-infarct dementia #Altered mental status #History of recurrent bacteremia #Has Port-A-Cath #Recent acute blood loss anemia, friable polyp removed. #Persistent positive blood cultures. #Blood culture positive for strep sella various, repeat cultures positive #History of radiation pneumonitis #History of lung cancer status post chemo and radiation, most recent PET scan showed no malignancy as per oncology. #History of recurrent pleural effusion on left side?chronic and stable #Large pericardial effusion, no hemodynamic compromise #Advanced age ? Transthoracic echo did not show endocarditis however showed a large pericardial effusion with no evidence of tamponade. ? Consult ID on Saturday ? Placed on vancomycin and Zosyn. ? Repeat blood cultures every 48 hours ? Patient will need prolonged IV antibiotics depending upon source. ? Suspicion that port may be infected. We may consider removal of that. We will wait for second cultures to speciate. ? Request records from [facility]. Discussed with nursing staff. We will follow-up in wound care records for Saturday. ? Please see previous progress notes for details on previous work-up so far. -Had a long discussion with patient's daughter and at bedside. Patient and family have already made a decision that even if her cancer has recurred they are not interested in any further chemo or radiation. Patient also made a decision to be DNR/DNI and family agrees that. ? Her pleural effusion has been chronic and has a trapped lung. It recurred pretty fast after her thoracentesis. We will not do further thoracentesis at this point. ? Daughter states that patient has had bacteremia before in January but did not complete her treatment. She had bacteremia before that as well. She says all her records are at [facility]. We have requested records but will not get them before Saturday due to being the weekend. ? Patient's daughter and did suggest to transfer patient to another hospital where they would have infectious disease services however [facility] also does not have ID over the weekend. They did prefer [facility] because her oncologist and manager steel were there. We also tried [facility] and there is a waiting list for 3 days. After another discussion with family it was decided to keep the patient here and to have her see ID on Saturday. Patient is hemodynamically stable at this time. She is saturating on 3 L nasal cannula. Previously her baseline was 5 L. ? Patient and are considering hospice after we treat this current infection which has not on lower source at this point. I did discuss with him regarding removal of the port but they would like infectious disease doctors opinion on it. ? Patient's clearly states that patient's mental status was not completely normal at home as well but she was also never this much confused. It is hard for him to tell whether this is all due to infection or her advancing dementia. ? I did show patient's and daughter her x-ray images and MRI. ? For now decision has been made to keep her on broad-spectrum antibiotics and have her seen by infectious disease on Saturday. At that point they will further decide what to do ? Hospice consult already ordered. ? Continue to hold Eliquis due to recent acute blood loss anemia. ? Patient and daughter do understand that if patient does deteriorate before she seen her infectious disease then according to patient's wishes and family's wishes we will let her progress naturally. -Lastly patient's does state that he does not want any thing traumatic done to her. He cannot explain it further but I believe he meant he does not want aggressive measures. We can clarify this with him again. DNR/DNI DVT prophylaxis: SCDs. Attestations Medical Necessity Statement*: Has positive blood cultures and repeat are positive as well. We will need to stay in the hospital until clearance and isolation of source. Will require prolonged IV antibiotics. Time Spent in Patient Care: less than 15 minutes Coding Level of Care Code Acute Code for Chg Fwd Diagnoses Spinous process fracture Bilateral pleural effusion J90 Fracture dislocation of costovertebral joint Squamous cell lung cancer C34.90 History of CVA (cerebrovascular accident) Z86.73 Pericardial effusion I31.39 Altered mental status R41.82 Delirium due to general medical condition F05 Compression fracture of thoracic vertebra S22.000A Lung cancer C34.90 Pleural effusion J90 Multi-infarct dementia F01.50 Alzheimer disease G30.9; F02.80
[2022-05-20] MEDS: metoprolol tartrate 25 mg Tablet PO (21:32)
--- NOTE | 2022-05-20 23:20 | ECG_ITS ---
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 Measurements Intervals [place] Rate: 81 P: 43 UT: 201 QRS: -18 QRSD: 113 T: 116 QT: 387 QTc: 449 Interpretive Statements SINUS RHYTHM POSSIBLE LEFT ATRIAL ENLARGEMENT [-0.1mV P-WAVE IN V1/V2] LOW QRS VOLTAGE IN EXTREMITY LEADS [QRS DEFLECTION < 0.5 mV IN LIMB LEADS] POSSIBLE ANTERIOR MYOCARDIAL INFARCTION , OF INDETERMINATE AGE [30 ms Q WAVE IN V3/V4, OR R < 0.2 mV IN V4] Compared to ECG 05/10/2022 03:59:37 Sinus tachycardia no longer present Myocardial infarct finding still present Electronically Signed On 05-22-2022 7:42:45 COLD WORK OPERATOR by Musa Miles M.D. [id number]
[2022-05-21] VITALS (12 sets, daily range): BP systolic 103–128; BP diastolic 71–84; PULSE 80–95; RESP 15–17; TEMP 36.3–37.3; O2SAT 97–100
[2022-05-21] MEDS: vancomycin 1,000 MG in sodium chloride 0.9% 250 ML 250 MG IV ×2 (01:39→16:45)
[2022-05-21] MEDS: piperacillin-tazobactam 3.375 GM in sodium chloride 0.9% (plus) 50 ML IV ×2 (04:56→12:27)
[2022-05-21] MEDS: metoprolol tartrate 25 mg Tablet PO ×2 (07:59→20:47)
[2022-05-21] MEDS: atorvastatin 40 mg Tablet 80 MG PO (07:59)
[2022-05-21] MEDS: calcium carb-vit d 600mg/400unit 1 Tablet 1 EACH PO (07:59)
[2022-05-21] MEDS: memantine 5 mg tablet PO ×2 (07:59→16:46)
[2022-05-21] MEDS: cholecalciferol (vitamin D3) 1,000 unit Tablet 1000 UNIT PO (07:59)
[2022-05-21] MEDS: cetirizine 10 mg Tablet PO (07:59)
[2022-05-21] MEDS: potassium chloride ER 20 mEq Tablet 40 MEQ PO (08:00)
[2022-05-21] MEDS: pantoprazole 40 mg SDV IVP (08:00)
--- NOTE | 2022-05-21 12:56 | P.PN_ITS ---
Subjective Subjective: Blood culture showing staph epidermis, no leukocytosis or fever, contamination possible Patient is pleasantly confused Will touch base with her daughter Dr. Delgado will see her tonight as well Vitals/I&O/Wt Last Vital Signs Temp 98.3 F 05/21/22 11:39 Pulse 83 05/21/22 11:39 Resp 16 05/21/22 11:39 BP 114/81 05/21/22 11:39 Pulse Ox 99 05/21/22 11:39 O2 Del Method 05/21/22 11:39 O2 Flow Rate 3 05/21/22 08:11 05/20/22 05/21/22 05/21/22 22:59 06:59 14:59 Intake Total 170 / 670 300 / 970 170 / 170 Balance 170 / 670 300 / 970 170 / 170 Physical Exam Narrative: Patient was eating breakfast Awake and alert Laying supine No active pain Pleasantly confused Nonfocal neuro exam Able to follow commands Short attention span Hemodynamically stable Currently on 2 L Data 05/20/22 05:54 05/20/22 02:38 Micro: Microbiology 05/17/22 11:47 Blood Culture - Preliminary Blood Staphylococcus epidermidis A&P Assessment and plan (1) Alzheimer disease: (2) Multi-infarct dementia: (3) Spinous process fracture: (4) Bilateral pleural effusion: (5) Fracture dislocation of costovertebral joint: (6) Squamous cell lung cancer: (7) Pericardial effusion: (8) Bacteremia: (9) Hypoxia: Plan Chronic hypoxia patient uses 5 L at home Waxing and waning mentation Pleasantly confused No signs of sepsis Repeat culture showing contamination? Staph epidermidis Patient will see Dr. Delgado today Patient currently is on vancomycin, I will go ahead and discontinue Zosyn for now Update daughter today Holding Eliquis in case her port needs to be removed She is not a good candidate to be on Eliquis DVT prophylaxis SCDs Soft mechanical diet DNR/DNI Daughter might opt for palliative care at the halfway Attestations Medical Necessity Statement*: Continue medical management Time Spent in Patient Care: 15 Coding Level of Care Code Acute Code for g Fwd Diagnoses Alzheimer disease G30.9; F02.80 Multi-infarct dementia F01.50 Spinous process fracture Bilateral pleural effusion J90 Fracture dislocation of costovertebral joint Squamous cell lung cancer C34.90 Pericardial effusion I31.39 Bacteremia R78.81 Hypoxia R09.02
--- NOTE | 2022-05-21 14:54 | PC.SOCIAL ---
IMM Updated Updated pt on IMM. No questions voiced. Provided pt a copy. Initialed, dated, & timed copy in chart.
--- NOTE | 2022-05-21 21:42 | P.CONIM_ITS ---
Providers/Reason For Consult Consulting Physician/Specialty*: Dionna Delgado MD/ Infectious Disease Reason for Consult*: Streptococcus bacteremia, port infection Requesting Physician: Marissa Ross MD Attending Physician: Earl Shaikh MD Primary Care Provider: ERMELINDA MEJIA MD History of Present Illness History of Present Illness History obtained by chart review and discussion with hospitalist. Unable to reach the family at time of this consult. Patient is confused and unable to state sepcifics. Jacqui Saavedra is a 77 year old female with H/o lung cancer reportedly in remission, followed at [facility], currently admitted here since 05/09 with what appears to be worsening AMS, generalized weakness, large pleural effusion and bacteremia. Also found to have several compression fractures during this admission, family is unable to care with her advancing needs. On 05/09, patient was admitted for AMS and has been undergoing evaluation for the same. Infectious w/up has included UA unremarkable for UTI, chest x-ray no focal pneumonia, CT chest no consolidation, B/L pleural effusions. S/p left sided thoracentesis on 05/15. No neck pain, no neck stiffness, Kernig sign negative, brudunski sign negative. Normal TSH. Brain MRI with Chronic infarcts with encephalomalacia and gliosis involving the RIGHT parietal lobe posteriorly and LEFT temporal lobe posteriorly, diffuse atrophy. Incidentally blood cx collected on admission on 05/09/22, (appears as 05/09 and 05/10 in the computer however per details,it appears this is one specimen placed in 4 bottles at one time, collected on 05/09/22 at 5:30 am and then called critical on 05/10 at 11am). Repeat blood cx from 05/16 is negative while from 05/17, Review of Systems General: Reports: ROS unobtainable due to medical condition Medications/Allergies Home Medications Medication Instructions Recorded Confirmed Last Taken Type Lactobacillus acidophilus 10 10,000 mmu cells PO DAILY 09/07/20 05/09/22 1 History billion cell capsule (Probiotic) Prevagen 1 tab PO DAILY 09/07/20 05/09/22 11/27/20 History alendronate 70 mg tablet 70 mg PO Q7D 09/07/20 05/09/22 11/27/20 History aspirin 81 mg tablet,delayed 81 mg PO DAILY 09/07/20 05/09/22 11/27/20 History release (Adult Aspirin Regimen) calcium carbonate 600 mg calcium 600 mg PO DAILY 09/07/20 05/09/22 11/27/20 History (1,500 mg) tablet (Calcium) cetirizine 10 mg tablet (Zyrtec) 10 mg PO DAILY 09/07/20 05/09/22 11/27/20 History cholecalciferol (vitamin D3) 25 25 mcg PO DAILY 09/07/20 05/09/22 11/27/20 History mcg (1,000 unit) capsule dextromethorphan-guaifenesin 10 10 ml PO Q8H PRN Cough 09/07/20 05/09/22 11/27/20 History mg-200 mg/5 mL oral liquid (Tussin DM Max) estradiol 10 mcg vaginal tablet 10 mcg vaginal Q7D 09/07/20 05/09/22 11/27/20 History (Vagifem) meloxicam 7.5 mg tablet 7.5 mg PO BID 09/07/20 05/09/22 11/27/20 History benzonatate 100 mg capsule 100 mg PO TID PRN cough 30 days 11/09/20 05/09/22 11/27/20 Rx (Tessalon Radha) #90 caps fluticasone 250 mcg-salmeterol 50 1 inh inhalation BID 11/09/20 05/09/22 11/27/20 History mcg/dose blistr powdr for inhalation (Advair Diskus) prednisone 20 mg tablet 40 mg PO DAILY 5 days #10 tabs 11/29/20 05/09/22 Unknown Rx apixaban 5 mg tablet (Eliquis) 5 mg PO BID 05/09/22 05/09/22 Unknown History atorvastatin 80 mg tablet (Lipitor) 80 mg PO DAILY 05/09/22 05/09/22 Unknown History cyclobenzaprine 5 mg tablet 5 mg PO DAILY PRN Muscle Pain 05/09/22 05/09/22 Unknown History metoprolol tartrate 25 mg tablet 25 mg PO DAILY 05/09/22 05/09/22 Unknown History tramadol 50 mg tablet 50 mg PO Q8H PRN Pain 05/09/22 05/09/22 Unknown History Allergies Allergy/AdvReac Type Severity Reaction Status Date / Time clindamycin Allergy Mild ALGY-Rash Verified 11/25/20 15:50 Current Medications Generic Name Dose Route Start Last Admin Trade Name Antwan PRN Reason Stop Dose Admin Apixaban 5 mg 05/10/22 09:00 05/12/22 17:42 Apixaban 5 Mg Tablet PO 5 mg BID BRITTON Administration Aspirin 81 mg 05/10/22 09:00 05/12/22 10:19 Aspirin 81 Mg Ec Tablet PO 81 mg DAILY BRITTON Administration Calcium Carbonate 1 each 05/13/22 09:00 05/21/22 07:59 Calcium Carb-Vit D 600mg/400unit 1 Tablet PO 1 each DAILY BRITTON Administration Cetirizine HCl 10 mg 05/10/22 09:00 05/21/22 07:59 Cetirizine 10 Mg Tablet PO 10 mg DAILY BRITTON Administration Vancomycin HCl 1,000 mg/ 250 mls @ 250 mls/hr 05/19/22 10:45 05/21/22 17:58 Sodium Chloride IV Infused Q18H BIRTTON Infusion Protocol As Directed Memantine 5 mg 05/13/22 18:00 05/21/22 16:46 Memantine 5 Mg Tablet PO 5 mg BID BRITTON Administration Metoprolol Tartrate 25 mg 05/10/22 09:00 05/21/22 20:47 Metoprolol Tartrate 25 Mg Tablet PO 25 mg BID@0900,2100 BRITTON Administration Pantoprazole Sodium 40 mg 05/10/22 00:39 05/21/22 08:00 Pantoprazole 40 Mg Sdv IVP 40 mg Q24H BRITTON Administration Vitamin D 1,000 unit 05/10/22 09:00 05/21/22 07:59 Cholecalciferol (Vitamin D3) 1,000 Unit Tablet PO 1,000 unit DAILY BRITTON Administration Additional Medication Information Zosyn 05/19- 05/21 CTX 05/17-05/19 levaquin 05/12-05/17 vacomycin 05/19-05/21 PFSH Acute PFSH: Medical History CAD (coronary artery disease) Chronic cough Endophthalmitis, left Gout HTN (hypertension) Hypercholesteremia Osteoarthritis Surgical History H/O angioplasty H/O tubal ligation Stented coronary artery Social History Smoking and tobacco status: former smoker Quit status (tobacco): has quit using tobacco Year quit tobacco: 2003 Former quit date comment: Hx of 1.5 PPD x 30 Years Second hand smoke exposure: No Smoking risk assessment/counseling performed?: No Alcohol intake: current Alcohol intake frequency: 0-2 Drinks per Day Alcohol type: wine Desire information about alcohol rehabilitation?: No Counseling given: No Desire information about substance/drug rehabilitation?: No Counseling given: No Lives independently: Yes Household members: spouse Marital status: Current occupational status: retired History of recent travel: No Current gender identity: Female Vitals/I&O/Wt Last Vital Signs Temp 99 F 05/21/22 20:00 Pulse 95 05/21/22 20:00 Resp 17 05/21/22 20:00 BP 126/76 05/21/22 20:00 Pulse Ox 100 05/21/22 20:00 O2 Del Method 05/21/22 15:56 O2 Flow Rate 3 05/21/22 08:11 05/21/22 05/21/22 05/21/22 06:59 14:59 22:59 Intake Total 300 / 970 428.125 / 428.125 370 / 798.125 Balance 300 / 970 428.125 / 428.125 370 / 798.125 Physical Exam Narrative: General: No acute distress, AO x2 HEENT: PERRLA, pupils bilaterally equal and reactive, pallors not present Chest: Normal vesicular breath sounds, no added sounds, equal good air entry bilaterally CVS: S1-S2 regular, no murmurs, no tachycardia, no gallops, no rubs Abdomen: Soft, nontender, no organomegaly, bowel sounds present Neuro: No focal deficits, no facial deformity, AO x2, power 5/5 in all limbs Data 05/20/22 05:54 05/20/22 02:38 Other Labs: Radiology Impressions Chest CT 05/09/22 00:00 IMPRESSION: 1. Moderate pericardial effusion. 2. Moderate LEFT and small RIGHT pleural effusions with compressive atelectasis. 3. Mid thoracic spine compression fractures described on the thoracic spine CT. 4. LEFT costovertebral joint fractures at T6, T7, and T8. 5. Nondisplaced fractures of the tips of the spinous processes at T6 and T7. Cervical Spine CT 05/09/22 12:51 IMPRESSION: 1. No evidence of acute fracture or dislocation. 2. Partially visualized fluid opacification of the LEFT lung apex. Chest CT is pending. Head CT 05/09/22 12:51 IMPRESSION: 1. No evidence of intracranial hemorrhage or mass effect. 2. Moderate small vessel changes. Moderate parenchymal volume loss. 3. Intracranial vascular calcification. 4. Chronic encephalomalacia at the RIGHT frontoparietal junction near the vertex and LEFT parietal occipital junction consistent with chronic infarcts. 5. No acute intracranial findings. Thoracic Spine CT 05/09/22 12:51 IMPRESSION: 1. Acute compression fractures T6, T7, T8, and T10 vertebral bodies worse at T8 with biconcave compression loss of approximately 50% vertebral body height. 2. No significant retropulsion. No significant central canal stenosis. 3. Partially visualized LEFT greater than RIGHT pleural effusions. 4. LEFT costovertebral junction fractures at T5-T7. Gallbladder Ultrasound 05/09/22 17:42 IMPRESSION: No acute sonographic findings. Head MRI 05/14/22 07:00 IMPRESSION: 1. No evidence of restricted diffusion to suggest acute ischemia. 2. Moderate to advanced small vessel changes with moderate parenchymal volume loss. 3. Chronic infarcts with encephalomalacia and gliosis involving the RIGHT parietal lobe posteriorly and LEFT temporal lobe posteriorly. Associated hemosiderin in these areas. 4. Advanced symmetric atrophy involving the temporal lobes and hippocampal formations. 5. Mild mucosal thickening in the LEFT mastoid air cells. Thoracentesis Ultrasound 05/15/22 08:00 IMPRESSION: Uncomplicated ultrasound-guided LEFT thoracentesis. Removal of 1000 cc Chest X-Ray 05/19/22 08:11 IMPRESSION: 1. Worsening left lung. 2. Worsening effusions. Laboratory Results WBC 5.7 10^3/uL (4.0-10.0) 05/20/22 05:54 Corrected WBC Cancelled 05/20/22 02:38 RBC 3.37 10^6/uL (4.1-5.3) L 05/20/22 05:54 Hgb 9.4 g/dL (11.5-15.3) L 05/20/22 05:54 Hct 31.5 % (37.0-47.0) L 05/20/22 05:54 MCV 93.5 fl (81-99) 05/20/22 05:54 MCH 27.9 pg (28.0-34.0) L 05/20/22 05:54 MCHC 29.8 g/dL (30.0-36.0) L 05/20/22 05:54 RDW 21.5 % (12.1-15.1) H 05/20/22 05:54 Plt Count 125 10^3/cmm (130-400) L 05/20/22 05:54 MPV 11.0 fL (7.4-10.4) H 05/20/22 05:54 Gran % Cancelled 05/20/22 02:38 Neut % (Auto) 77.7 % 05/20/22 05:54 Lymph % (Auto) 10.5 % 05/20/22 05:54 Butts % (Auto) 9.8 % 05/20/22 05:54 Eos % (Auto) 0.7 % 05/20/22 05:54 Baso % (Auto) 0.3 % 05/20/22 05:54 Neut # (Auto) 4.45 10^3/uL (1.8-7.7) 05/20/22 05:54 Lymph # (Auto) 0.6 10^3/uL (0.8-4.8) L 05/20/22 05:54 Butts # (Auto) 0.6 10^3/uL (0.2-0.9) 05/20/22 05:54 Eos # (Auto) 0.0 10^3/uL (0.0-0.8) 05/20/22 05:54 Baso # (Auto) 0.0 10^3/uL (0.0-0.1) 05/20/22 05:54 Absolute Gran (auto) Cancelled 05/20/22 02:38 Nucleated RBC % (auto) 0 % 05/20/22 05:54 Nucleated RBCs # 0.0 /100WBC 05/20/22 05:54 ESR 11 mm/hr (0-15) 05/10/22 14:36 PT 19.70 SECONDS (12.1-14.9) H 05/14/22 08:31 INR 1.64 (0.8-1.2) H 05/14/22 08:31 APTT 33.4 SECONDS (23.9-36.7) 05/09/22 15:00 D-Dimer 4.49 ug/mIFEU (0-0.59) H 05/09/22 22:23 Specimen Type Arterial 05/20/22 09:12 Sample Site Radial, right 05/20/22 09:12 ABG pH 7.44 (7.35-7.45) 05/20/22 09:12 ABG pCO2 42.1 mmHg (35-45) 05/20/22 09:12 ABG pO2 67.3 mmHg (80.0-100.0) L 05/20/22 09:12 ABG HCO3 28.5 mmol/L (22-26) H 05/20/22 09:12 ABG O2 Saturation 93.0 05/20/22 09:12 ABG Base Excess 3.9 mmol/L (-2.0-2.0) H 05/20/22 09:12 Srinivasan Test Pos 05/20/22 09:12 A-a O2 Gradient 3.9 mmHg (5-10) L 05/20/22 09:12 Hematocrit 31.1 % (37-47) L 05/20/22 09:12 Hgb O2 Saturation 91.2 % (95-100) L 05/20/22 09:12 Carboxyhemoglobin 1.9 %THgb (0.4-20.1) 05/20/22 09:12 Methemoglobin 0.0 % (0.4-1.5) L 05/20/22 09:12 Total Hemoglobin 10.1 g/dL (12-16) L 05/20/22 09:12 Sodium 138.0 mmol/L (131-143) 05/20/22 09:12 Potassium 3.3 mmol/L (3.5-5.0) L 05/20/22 09:12 Glucose 145.0 mg/dL (70-115) H 05/20/22 09:12 Ionized Calcium 1.2 mmol/L (1.1-1.4) 05/20/22 09:12 O2 Delivery Device Nc 05/20/22 09:12 O2 Liters/Min 3.0 % 05/20/22 09:12 Anodizing Line Operator ID Walci 05/20/22 09:12 Sodium 140 mmol/L (136-145) 05/20/22 02:38 Potassium 3.9 mmol/L (3.5-5.1) 05/20/22 02:38 Chloride 104 mmol/L (98-107) 05/20/22 02:38 Carbon Dioxide 25 mmol/L (22-29) 05/20/22 02:38 Anion Gap 14.9 (5-19) 05/20/22 02:38 BUN 13 mg/dL (8-23) 05/20/22 02:38 Creatinine 0.7 mg/dL (0.5-0.9) 05/20/22 02:38 GFR Calculation Not Reportable 05/20/22 02:38 Glucose 117 mg/dL (65-115) H 05/20/22 02:38 POC Glucose 89 mg/dL (70-110) 05/09/22 12:30 Estimat Average Glucose 123 05/09/22 22:23 Hemoglobin A1c 5.9 % (4.0-6.0) 05/09/22 22:23 Calculated Osmolality 291 mOsm/kg (285-295) 05/20/22 02:38 Lactic Acid 1.5 mmol/L (0.5-2.2) 05/09/22 22:23 Calcium 8.2 mg/dL (8.5-10.5) L 05/20/22 02:38 Magnesium 1.9 mg/dL (1.7-2.3) 05/19/22 02:49 Total Bilirubin 1.9 mg/dL (0.15-1.2) H 05/09/22 15:00 AST 47 U/L (0-32) H 05/09/22 15:00 ALT 32 U/L (0-33) 05/09/22 15:00 Alkaline Phosphatase 120 U/L (35-105) H 05/09/22 15:00 Ammonia 20 umol/L (11-51) 05/09/22 15:00 Lactate Dehydrogenase 207 U/L (135-214) 05/17/22 11:47 Troponin T Baseline 24 ng/L (0-10) H 05/09/22 22:23 Troponin T 120 Minute Cancelled 05/10/22 05:34 Delta Troponin T Cancelled 05/10/22 05:34 Troponin T Hi Sens 6Hr 22.70 ng/L (0-10) H 05/10/22 05:34 Troponin T Hi Sens 6Hr Delta -1.30 ng/L (0-12) L 05/10/22 05:34 C-Reactive Protein 56.5 mg/L (0.0-4.9) H 05/09/22 22:23 NT-Pro-B Natriuret Pep 4301 pg/mL (0-450) H 05/09/22 22:23 Total Protein 5.3 g/dL (6.6-8.7) L 05/17/22 11:47 Albumin 4.3 g/dL (3.5-5.2) 05/09/22 15:00 Globulin 3.3 g/dL (1.3-4.6) 05/09/22 15:00 Vitamin B12 1714 pg/mL (232-1245) H 05/13/22 15:32 Procalcitonin 0.06 ng/mL (0-0.5) 05/19/22 11:05 TSH 2.44 uIU/mL (0.27-4.20) 05/09/22 22:23 Urine Color Yellow (Yellow) 05/09/22 19:09 Urine Appearance Clear (CLEAR) 05/09/22 19:09 Urine pH 6 (5-7) 05/09/22 19:09 Ur Specific [place] 1.025 (1.005-1.030) 05/09/22 19:09 Urine Protein 1+ (Negative) H 05/09/22 19:09 Urine Glucose (UA) Norm (Normal) 05/09/22 19:09 Urine Ketones 1+ (Negative) H 05/09/22 19:09 Urine Blood 2+ (Negative) H 05/09/22 19:09 Urine Nitrate Negative (Negative) 05/09/22 19:09 Urine Bilirubin 1+ (Negative) H 05/09/22 19:09 Urine Urobilinogen 4 mg/dL (Negative) H 05/09/22 19:09 Ur Leukocyte Esterase Negative (Negative) 05/09/22 19:09 Urine RBC None /hpf (0-2) 05/09/22 19:09 Urine WBC 0-4 /hpf (0-5) H 05/09/22 19:09 Ur Squamous Epith Cells 0-4 /hpf (0-5) H 05/09/22 19:09 Amorphous Sediment Not Reportable 05/09/22 19:09 Urine Bacteria Trace /hpf (NONE) 05/09/22 19:09 Hyaline Casts 0-4 /lpf H 05/09/22 19:09 Urine Mucus Trace /hpf 05/09/22 19:09 Pleural Color Yellow (Pale Yellow) H 05/15/22 09:41 Pleural Appearance Clear (CLEAR) 05/15/22 09:41 Pleural pH 8.00 (6.5-7.5) H 05/15/22 09:41 Pleural WBC 86.000 /uL (0-1000) 05/15/22 09:41 Pleural RBC 0.000 10^3/uL 05/15/22 09:41 Pleural Mononuc # Auto 0.041 10^3/uL 05/15/22 09:41 Pleural Polynuclear % 52 % 05/15/22 09:41 Pleural Polynuclear # 0.045 10^3/uL 05/15/22 09:41 Pleural Mononuclear % 48 % 05/15/22 09:41 Pleural Other Cells Lt Left lung 05/15/22 09:41 Pleural Total Protein 2.9 g/dL 05/15/22 09:41 Pleural LDH 98 U/L 05/15/22 09:41 Pleural Glucose 108.0 mg/dL 05/15/22 09:41 Ethyl Alcohol < 10 mg/dL (0-10) 05/09/22 15:00 SARS-CoV-2 Ag (Rapid) negative (Negative) 05/17/22 11:00 Misc Test Reference Cancelled 05/10/22 14:36 Micro: Microbiology 05/16/22 14:43 Blood Culture - Final Blood NO GROWTH AFTER 5 DAYS 05/17/22 11:47 Blood Culture - Preliminary Blood Staphylococcus epidermidis 05/09/22: Blood cx (06/30): taken from same draw : + Strep Salivarius 05/10/22 (sample marked as 05/10 in error it appears, this is still the 05/09 specimen) : Strep Salivarius * Ampicillin 0.25 S * Azithromycin <=0.25 S * Cefepime 0.5 S * Ceftriaxone <=0.25 S * Clindamycin <=0.06 S * Erythromycin <=0.06 S * Levofloxacin 0.5 S * Meropenem <=0.06 S * Penicillin 0.12 S * Tetracycline <=0.5 S Vancomycin 0.5 S 05/16/22: Bood cx: NGTD 05/17/22: Blood cx (?port): Staph epidermidis 05/15/22: Left thoracentesis : transudate per light;s criteria LT Pleural Fld Left Lung Pleur pH 8.00 H 6.5-7.5 Pl, Color Yellow H Pale Yellow PL Appearance CLEAR CLEAR Pleur WBC 86.000 0-1000 /uL Pleur RBC 0.000 10^3/uL Mononuclear, Pl 48 % PF, Poly % 52 % Butts # 0.041 10^3/uL Poly Cells # 0.045 10^3/uL PLF Total Prot 2.9 g/dL Serum: 7.6 NOTE NO REFERENCE RANGE PLF LDH 98 U/L Serum: 207 NOTE NO REFERENCE RANGE Pl Glucose 108.0 mg/dL NOTE NO REFERENCE RANGE Pathology: 05/15: pleural fluid: inflammatory cells pleural fluid gram stain and cx ; N/A A&P Assessment and plan (1) Bacteremia: Patient admitted 05/09 with AMS, generalized weakness, failure to thrive, multiple compression fractures more subacute cognitive decline which is likely attributable to dementia MRI with senescent changes and vascular changes Currently Blood cx + strep salivarius (all cx from same day, single prick). No lauren aspiration noted on speech evaluation Other infectious w/up overall negative as outlined above. Left thoracentesis with fluid analysis c/w transudate effusion. Unfortunately no cx available from pleural fluid. Blood cx from 05/17 with staph epidermidis likely to represent contamination Blood cx cleared between 05/09 to 05/16 while on levaquin. therefater has been on B lactams for the next 6 days. Per discussion with primary team, patient has a h/o recurrent bacteremias over the past year though organisms not known at this time. Plan: D/c vancomycin, suspect CONS is a contaminant For strep salivarius + blood cx : documented cleared as on 05/16 on levaquin. Can continue ceftriaxone 1 g iv q24h while admitted and then discharge on po levaquin Bigger question regarding port removal depends on patients overall GOC and h/o previous bacteremias. As such single episode of strep salivarius bacteremia would not need port removal however if this is a recurrent bacteremia, then port removal may be warranted to prevent future episodes if compatible with her GOC. It appears patient is considering tranition to hospice/palliative care in which case it may not be compatible with her wishes to proceed with any procedures- will reach out to family regarding the same. will also try to obtain records regarding the previous bacteremias. At any rate her AMS is unlikely to be linked to her positive blood cx as prolonged abx treatment wth cleranace of blood cx has not corelared with any change in mentation or meaningful clinical change. This appeats more likely from dementia. She has remained afberile, hemodynamically stable ,no leukocytosis will follow after discussion with family (2) Multi-infarct dementia: Consult Attestations Medical Necessity Statement: per admitting note Coding Level of Care Code Acute Code for Chg Fwd Diagnoses Bacteremia R78.81 Multi-infarct dementia F01.50
[2022-05-22] MEDS: cefTRIAXone 1,000 MG in sodium chloride 0.9% (plus) 50 ML 100 MG IV (01:19)
[2022-05-22 04:00] VITALS: BP 113/73; PULSE 89; RESP 16; TEMP 36.5; O2SAT 98
[2022-05-22 05:00] VITALS: BP 113/73; PULSE 89; RESP 16; TEMP 36.5
[2022-05-22 05:44] LABS: Basophils % 0.3 %; Eosinophils % 0.5 %; Hematocrit 32.3 % (37.0-47.0); Hemoglobin 9.8 g/dL (11.5-15.3); Lymphocytes # 0.7 10^3/uL (0.8-4.8); Lymphocytes % 10.9 %; Mean Corpuscular HGB Conc 30.3 g/dL (30.0-36.0); Mean Corpuscular Hemoglobin 28.3 pg (28.0-34.0); Mean Corpuscular Volume 93.4 fl (81-99); Mean Platelet Volume 12.9 fL (7.4-10.4); Monocytes # 0.7 10^3/uL (0.2-0.9); Monocytes % 10.4 %; Neutrophils # 5.14 10^3/uL (1.8-7.7); Neutrophils % 77.6 %; Nucleated Red Blood Cells % 0 %; Platelet Count 159 10^3/cmm (130-400); Red Blood Count 3.46 10^6/uL (4.1-5.3); Red Cell Distribution Width 21.4 % (12.1-15.1); White Blood Count 6.6 10^3/uL (4.0-10.0)
[2022-05-22 06:00] VITALS: BP 113/73; PULSE 89; PULSE 91; RESP 16; TEMP 36.5
[2022-05-22 06:16] LABS: Blood Urea Nitrogen 13 mg/dL (8-23); Calcium 8.2 mg/dL (8.5-10.5); Carbon Dioxide 25 mmol/L (22-29); Chloride 106 mmol/L (98-107); Glucose 114 mg/dL (65-115); Osmolality Calculated 289 mOsm/kg (285-295); Sodium 139 mmol/L (136-145)
[2022-05-22 08:00] VITALS: BP 124/84; PULSE 91; PULSE 93; RESP 16; TEMP 36.8; O2SAT 94; O2SAT 96
[2022-05-22] MEDS: calcium carb-vit d 600mg/400unit 1 Tablet 1 EACH PO (08:34)
[2022-05-22] MEDS: memantine 5 mg tablet PO (08:34)
[2022-05-22] MEDS: metoprolol tartrate 25 mg Tablet PO (08:34)
[2022-05-22] MEDS: cetirizine 10 mg Tablet PO (08:34)
[2022-05-22] MEDS: cholecalciferol (vitamin D3) 1,000 unit Tablet 1000 UNIT PO (08:34)
[2022-05-22] MEDS: pantoprazole 40 mg SDV IVP (08:36)
--- NOTE | 2022-05-22 10:58 | PM.DCS ---
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 Hypertension, hypercholesterolemia, gout who presents [facility] for altered mental status. Patient was admitted for management of metabolic encephalopathy initially there was concern for infection such as UTI or pneumonia however she remained afebrile, no leukocytosis, she was not put on antibiotics initially until her blood cultures returned positive for Streptococcus salivarius, repeat culture showed contamination with Staph epidermidis, as per the daughter she requires 5 L of oxygen, and mentation was fine until last February when things started getting worse for her. Multiple family meetings were conducted throughout her hospitalization. ID consultation was requested as well to see if we need to remove her Mediport. Currently see ID note for further details. Patient did not show any signs of sepsis, meningitis, persistent bacteremia. Decision was made not to pursue removal of Mediport for now discharged her to [facility] on ceftriaxone through her Mediport. Her daughter is in agreement. Dr. Delgado also spoke with her daughter today. Patient is DNR/DNI, in case of further worsening daughter might pursue palliative care. Patient has multiple compression fractures, she never complained of back pain, she is not a good candidate for surgical intervention considering her physical deconditioning and age, I have discontinued Eliquis at the time of discharge because of her risk of recurrent falls. Her mental status change seems related to underlying dementia. All reversible causes were ruled out. PCP was also notified from [facility]. Her daughter lives in [place] who was kept updated on daily basis. Patient is showing signs of dementia, poor appetite, pleasantly confused, she carries guarded prognosis at this point. Her is not able to make decisions for her, most of the information we received from her was false which was verified by Magali(daughter) Physical Exam Narrative: Nonfocal neuro exam Pleasant but confused Short attention span Able to move her upper extremities without any discomfort Answer simple questions appropriately She was using iPad when I entered the room Discharge Data Studies Completed and Pending Completed Studies During Hospitalization Category Date Time Status CT cervical spin wo con* [id number] Stat Cat Scan 05/09/22 12:[address] chest wo con [id number] Stat Cat Scan 05/09/[address] head wo con* [id number] Stat Cat Scan 05/09/22 12:[address] thoracic spin wo con* [id number] Stat Cat Scan 05/09/22 12:51 Completed CXRP [XR chest 1V portable [id number]] Urgent Exams 05/15/22 09:39 Completed XR chest 1V portable [id number] Routine Exams 05/12/22 15:26 Completed XR chest 1V portable [id number] Urgent Exams 05/19/22 08:11 Completed MR head wo con* [id number] Routine MRI 05/14/22 07:00 Completed CV carotid duplex BI* [id number] Stat Ultrasound 05/09/22 21:21 Completed CV. echo complete* [id number] Stat Ultrasound 05/09/22 21:21 Completed CV. echo limited [id number] Routine Ultrasound 05/18/22 11:55 Completed US gall bladder [id number] Stat Ultrasound 05/09/22 17:42 Completed US thoracentesis [id number] Routine Ultrasound 05/15/22 08:00 Completed Pending at discharge Category Date Time Status Bacterial Antigen Stat Lab 05/19/22 10:12 Ordered Blood Culture Stat Lab 05/17/22 11:52 Results Legionella Antigen STAT Stat Lab 05/19/22 10:12 Ordered Sputum Culture and Gram Stain Stat Lab 05/19/22 10:12 Uncollected Urine Culture Stat Lab 05/19/22 14:46 Uncollected Radiology Impressions Chest CT 05/09/22 00:00 IMPRESSION: 1. Moderate pericardial effusion. 2. Moderate LEFT and small RIGHT pleural effusions with compressive atelectasis. 3. Mid thoracic spine compression fractures described on the thoracic spine CT. 4. LEFT costovertebral joint fractures at T6, T7, and T8. 5. Nondisplaced fractures of the tips of the spinous processes at T6 and T7. Cervical Spine CT 05/09/22 12:51 IMPRESSION: 1. No evidence of acute fracture or dislocation. 2. Partially visualized fluid opacification of the LEFT lung apex. Chest CT is pending. Head CT 05/09/22 12:51 IMPRESSION: 1. No evidence of intracranial hemorrhage or mass effect. 2. Moderate small vessel changes. Moderate parenchymal volume loss. 3. Intracranial vascular calcification. 4. Chronic encephalomalacia at the RIGHT frontoparietal junction near the vertex and LEFT parietal occipital junction consistent with chronic infarcts. 5. No acute intracranial findings. Thoracic Spine CT 05/09/22 12:51 IMPRESSION: 1. Acute compression fractures T6, T7, T8, and T10 vertebral bodies worse at T8 with biconcave compression loss of approximately 50% vertebral body height. 2. No significant retropulsion. No significant central canal stenosis. 3. Partially visualized LEFT greater than RIGHT pleural effusions. 4. LEFT costovertebral junction fractures at T5-T7. Gallbladder Ultrasound 05/09/22 17:42 IMPRESSION: No acute sonographic findings. Head MRI 05/14/22 07:00 IMPRESSION: 1. No evidence of restricted diffusion to suggest acute ischemia. 2. Moderate to advanced small vessel changes with moderate parenchymal volume loss. 3. Chronic infarcts with encephalomalacia and gliosis involving the RIGHT parietal lobe posteriorly and LEFT temporal lobe posteriorly. Associated hemosiderin in these areas. 4. Advanced symmetric atrophy involving the temporal lobes and hippocampal formations. 5. Mild mucosal thickening in the LEFT mastoid air cells. Thoracentesis Ultrasound 05/15/22 08:00 IMPRESSION: Uncomplicated ultrasound-guided LEFT thoracentesis. Removal of 1000 cc Chest X-Ray 05/19/22 08:11 IMPRESSION: 1. Worsening left lung. 2. Worsening effusions. Laboratory Results WBC 6.6 10^3/uL (4.0-10.0) 05/22/22 05:11 Corrected WBC Cancelled 05/20/22 02:38 RBC 3.46 10^6/uL (4.1-5.3) L 05/22/22 05:11 Hgb 9.8 g/dL (11.5-15.3) L 05/22/22 05:11 Hct 32.3 % (37.0-47.0) L 05/22/22 05:11 MCV 93.4 fl (81-99) 05/22/22 05:11 MCH 28.3 pg (28.0-34.0) 05/22/22 05:11 MCHC 30.3 g/dL (30.0-36.0) 05/22/22 05:11 RDW 21.4 % (12.1-15.1) H 05/22/22 05:11 Plt Count 159 10^3/cmm (130-400) 05/22/22 05:11 MPV 12.9 fL (7.4-10.4) H 05/22/22 05:11 Gran % Cancelled 05/20/22 02:38 Neut % (Auto) 77.6 % 05/22/22 05:11 Lymph % (Auto) 10.9 % 05/22/22 05:11 [place] % (Auto) 10.4 % 05/22/22 05:11 Eos % (Auto) 0.5 % 05/22/22 05:11 Baso % (Auto) 0.3 % 05/22/22 05:11 Neut # (Auto) 5.14 10^3/uL (1.8-7.7) 05/22/22 05:11 Lymph # (Auto) 0.7 10^3/uL (0.8-4.8) L 05/22/22 05:11 [place] # (Auto) 0.7 10^3/uL (0.2-0.9) 05/22/22 05:11 Eos # (Auto) 0.0 10^3/uL (0.0-0.8) 05/22/22 05:11 Baso # (Auto) 0.0 10^3/uL (0.0-0.1) 05/22/22 05:11 Absolute Gran (auto) Cancelled 05/20/22 02:38 Nucleated RBC % (auto) 0 % 05/22/22 05:11 Nucleated RBCs # 0.0 /100WBC 05/22/22 05:11 ESR 11 mm/hr (0-15) 05/10/22 14:36 PT 19.70 SECONDS (12.1-14.9) H 05/14/22 08:31 INR 1.64 (0.8-1.2) H 05/14/22 08:31 APTT 33.4 SECONDS (23.9-36.7) 05/09/22 15:00 D-Dimer 4.49 ug/mIFEU (0-0.59) H 05/09/22 22:23 Specimen Type Arterial 05/20/22 09:12 Sample Site Radial, right 05/20/22 09:12 ABG pH 7.44 (7.35-7.45) 05/20/22 09:12 ABG pCO2 42.1 mmHg (35-45) 05/20/22 09:12 ABG pO2 67.3 mmHg (80.0-100.0) L 05/20/22 09:12 ABG HCO3 28.5 mmol/L (22-26) H 05/20/22 09:12 ABG O2 Saturation 93.0 05/20/22 09:12 ABG Base Excess 3.9 mmol/L (-2.0-2.0) H 05/20/22 09:12 Srinivasan Test Pos 05/20/22 09:12 A-a O2 Gradient 3.9 mmHg (5-10) L 05/20/22 09:12 Hematocrit 31.1 % (37-47) L 05/20/22 09:12 Hgb O2 Saturation 91.2 % (95-100) L 05/20/22 09:12 Carboxyhemoglobin 1.9 %THgb (0.4-20.1) 05/20/22 09:12 Methemoglobin 0.0 % (0.4-1.5) L 05/20/22 09:12 Total Hemoglobin 10.1 g/dL (12-16) L 05/20/22 09:12 Sodium 138.0 mmol/L (131-143) 05/20/22 09:12 Potassium 3.3 mmol/L (3.5-5.0) L 05/20/22 09:12 Glucose 145.0 mg/dL (70-115) H 05/20/22 09:12 Ionized Calcium 1.2 mmol/L (1.1-1.4) 05/20/22 09:12 O2 Delivery Device Nc 05/20/22 09:12 O2 Liters/Min 3.0 % 05/20/22 09:12 Sample Examiner ID [place] 05/20/22 09:12 Sodium 139 mmol/L (136-145) 05/22/22 05:11 Potassium 4.0 mmol/L (3.5-5.1) 05/22/22 05:11 Chloride 106 mmol/L (98-107) 05/22/22 05:11 Carbon Dioxide 25 mmol/L (22-29) 05/22/22 05:11 Anion Gap 12.0 (5-19) 05/22/22 05:11 BUN 13 mg/dL (8-23) 05/22/22 05:11 Creatinine 0.9 mg/dL (0.5-0.9) 05/22/22 05:11 GFR Calculation Not Reportable 05/22/22 05:11 Glucose 114 mg/dL (65-115) 05/22/22 05:11 POC Glucose 89 mg/dL (70-110) 05/09/22 12:30 Estimat Average Glucose 123 05/09/22 22:23 Hemoglobin A1c 5.9 % (4.0-6.0) 05/09/22 22:23 Calculated Osmolality 289 mOsm/kg (285-295) 05/22/22 05:11 Lactic Acid 1.5 mmol/L (0.5-2.2) 05/09/22 22:23 Calcium 8.2 mg/dL (8.5-10.5) L 05/22/22 05:11 Magnesium 1.9 mg/dL (1.7-2.3) 05/19/22 02:49 Total Bilirubin 1.9 mg/dL (0.15-1.2) H 05/09/22 15:00 AST 47 U/L (0-32) H 05/09/22 15:00 ALT 32 U/L (0-33) 05/09/22 15:00 Alkaline Phosphatase 120 U/L (35-105) H 05/09/22 15:00 Ammonia 20 umol/L (11-51) 05/09/22 15:00 Lactate Dehydrogenase 207 U/L (135-214) 05/17/22 11:47 Troponin T Baseline 24 ng/L (0-10) H 05/09/22 22:23 Troponin T 120 Minute Cancelled 05/10/22 05:34 Delta Troponin T Cancelled 05/10/22 05:34 Troponin T Hi Sens 6Hr 22.70 ng/L (0-10) H 05/10/22 05:34 Troponin T Hi Sens 6Hr Delta -1.30 ng/L (0-12) L 05/10/22 05:34 C-Reactive Protein 56.5 mg/L (0.0-4.9) H 05/09/22 22:23 NT-Pro-B Natriuret Pep 4301 pg/mL (0-450) H 05/09/22 22:23 Total Protein 5.3 g/dL (6.6-8.7) L 05/17/22 11:47 Albumin 4.3 g/dL (3.5-5.2) 05/09/22 15:00 Globulin 3.3 g/dL (1.3-4.6) 05/09/22 15:00 Vitamin B12 1714 pg/mL (232-1245) H 05/13/22 15:32 Procalcitonin 0.06 ng/mL (0-0.5) 05/19/22 11:05 TSH 2.44 uIU/mL (0.27-4.20) 05/09/22 22:23 Urine Color Yellow (Yellow) 05/09/22 19:09 Urine Appearance Clear (CLEAR) 05/09/22 19:09 Urine pH 6 (5-7) 05/09/22 19:09 Ur Specific [place] 1.025 (1.005-1.030) 05/09/22 19:09 Urine Protein 1+ (Negative) H 05/09/22 19:09 Urine Glucose (UA) Norm (Normal) 05/09/22 19:09 Urine Ketones 1+ (Negative) H 05/09/22 19:09 Urine Blood 2+ (Negative) H 05/09/22 19:09 Urine Nitrate Negative (Negative) 05/09/22 19:09 Urine Bilirubin 1+ (Negative) H 05/09/22 19:09 Urine Urobilinogen 4 mg/dL (Negative) H 05/09/22 19:09 Ur Leukocyte Esterase Negative (Negative) 05/09/22 19:09 Urine RBC None /hpf (0-2) 05/09/22 19:09 Urine WBC 0-4 /hpf (0-5) H 05/09/22 19:09 Ur Squamous Epith Cells 0-4 /hpf (0-5) H 05/09/22 19:09 Amorphous Sediment Not Reportable 05/09/22 19:09 Urine Bacteria Trace /hpf (NONE) 05/09/22 19:09 Hyaline Casts 0-4 /lpf H 05/09/22 19:09 Urine Mucus Trace /hpf 05/09/22 19:09 Pleural Color Yellow (Pale Yellow) H 05/15/22 09:41 Pleural Appearance Clear (CLEAR) 05/15/22 09:41 Pleural pH 8.00 (6.5-7.5) H 05/15/22 09:41 Pleural WBC 86.000 /uL (0-1000) 05/15/22 09:41 Pleural RBC 0.000 10^3/uL 05/15/22 09:41 Pleural Mononuc # Auto 0.041 10^3/uL 05/15/22 09:41 Pleural Polynuclear % 52 % 05/15/22 09:41 Pleural Polynuclear # 0.045 10^3/uL 05/15/22 09:41 Pleural Mononuclear % 48 % 05/15/22 09:41 Pleural Other Cells Lt Left lung 05/15/22 09:41 Pleural Total Protein 2.9 g/dL 05/15/22 09:41 Pleural LDH 98 U/L 05/15/22 09:41 Pleural Glucose 108.0 mg/dL 05/15/22 09:41 Ethyl Alcohol < 10 mg/dL (0-10) 05/09/22 15:00 SARS-CoV-2 Ag (Rapid) negative (Negative) 05/17/22 11:00 Misc Test Reference Cancelled 05/10/22 14:36 Vitals Last Vital Signs Temp 98.2 F 05/22/22 08:00 Pulse 93 05/22/22 08:00 Resp 16 05/22/22 08:00 BP 124/84 05/22/22 08:00 Pulse Ox 94 05/22/22 08:00 O2 Del Method 05/22/22 08:00 O2 Flow Rate 3 05/22/22 08:00 Discharge Plan Discharge Patient Disposition: Xfer SNF Condition: Stable Prescriptions: New memantine 5 mg Tablet 5 mg PO BID 30 Days Qty: 60 0RF ceftriaxone 1 gram recon soln 1 g IV DAILY 7 Days Qty: 7 0RF Continued alendronate 70 mg tablet 70 mg PO Q7D Probiotic 10 billion cell capsule 10,000 mmu cells PO DAILY Rx Instructions: administer with a meal Prevagen 1 tab PO DAILY Tussin DM Max 10-200 mg/5 mL liquid 10 ml PO Q8H PRN (Reason: Cough) cholecalciferol (vitamin D3) 25 mcg (1,000 unit) capsule 25 mcg PO DAILY fluticasone propion-salmeterol [Advair Diskus] 250-50 mcg/dose blister with device 1 inh inhalation BID benzonatate [Tessalon Perles] 100 mg capsule 100 mg PO TID PRN (Reason: cough) 30 Days Qty: 90 3RF tramadol 50 mg Tablet 50 mg PO Q8H PRN (Reason: Pain) metoprolol tartrate 25 mg tablet 25 mg PO DAILY Discontinued estradiol [Vagifem] 10 mcg tablet 10 mcg vaginal Q7D cetirizine [Zyrtec] 10 mg tablet 10 mg PO DAILY meloxicam 7.5 mg tablet 7.5 mg PO BID calcium carbonate [Calcium 600] 600 mg calcium (1,500 mg) tablet 600 mg PO DAILY aspirin [Adult Aspirin Regimen] 81 mg tablet,delayed release (DR/EC) 81 mg PO DAILY prednisone 20 mg tablet 40 mg PO DAILY 5 Days Qty: 10 0RF atorvastatin [Lipitor] 80 mg Tablet 80 mg PO DAILY cyclobenzaprine 5 mg Tablet 5 mg PO DAILY PRN (Reason: Muscle Pain) Eliquis 5 mg Tablet 5 mg PO BID Discharge Orders: Discharge Order (Routine); Ordered 05/22/22 Ordered By: Earl Shaikh Referrals: [facility] [Outside] Dionna Delgado MD [Hospitalist] - 2 weeks ERMELINDA MEJIA MD [Primary Care Provider] - 4-7 days Discharge Diet: Advance as tolerated Discharge Activity: Use walker/crutches as instructed and As per PT/OT instructions Patient Instructions: Ceftriaxone (By injection), Memantine (By mouth), Opioid Safety Discharge Attestations Time Spent in Discharge Care*: less than 30 min Quality Metrics Clinical Quality Measures [ No reported AMI, CVA or VTE this stay] Coding Level of Care Code Acute Chg FW DC note Diagnoses Bacteremia R78.81 Multi-infarct dementia F01.50
[2022-05-22 11:31] VITALS: BP 123/85; PULSE 77; RESP 16; TEMP 36.7; O2SAT 95
--- NOTE | 2022-05-22 12:10 | PC.NURSE ---
Report called to MELLISSA Owens, and IVON.
[2022-05-22 12:37] LABS: SARS Covid-2 Antigen negative (Negative)
== END 2022-05-22 14:49 | disposition skilled nursing facility (03) ==
LOC: ER 23:52 → MEDSURG 05-10 00:43
PROVIDERS: Internal Medicine; Admitting Provider Family Medicine; Emergency Provider Emergency Medicine; PCP Family Medicine; Visit Provider Internal Medicine
DX: R78.81 Bacteremia (principal); F01.50 Vascular dementia, unspecified severity, without behavioral disturbance, psychotic disturbance, mood disturbance, and anxiety; Z86.73 Personal history of transient ischemic attack (TIA), and cerebral infarction without residual deficits; S22.050A Wedge compression fracture of T5-T6 vertebra, initial encounter for closed fracture; S22.060A Wedge compression fracture of T7-T8 vertebra, initial encounter for closed fracture; S22.061A Stable burst fracture of T7-T8 vertebra, initial encounter for closed fracture; S22.070A Wedge compression fracture of T9-T10 vertebra, initial encounter for closed fracture; X58.XXXA Exposure to other specified factors, initial encounter; I25.10 Atherosclerotic heart disease of native coronary artery without angina pectoris; I48.91 Unspecified atrial fibrillation; Z79.01 Long term (current) use of anticoagulants; I10 Essential (primary) hypertension; E78.00 Pure hypercholesterolemia, unspecified; Z99.81 Dependence on supplemental oxygen; Z79.82 Long term (current) use of aspirin; Z87.891 Personal history of nicotine dependence; R09.02 Hypoxemia; Z66 Do not resuscitate; G30.9 Alzheimer's disease, unspecified; F02.80 Dementia in other diseases classified elsewhere, unspecified severity, without behavioral disturbance, psychotic disturbance, mood disturbance, and anxiety; J90 Pleural effusion, not elsewhere classified; C34.90 Malignant neoplasm of unspecified part of unspecified bronchus or lung; I31.39 Other pericardial effusion (noninflammatory); R54 Age-related physical debility; M19.90 Unspecified osteoarthritis, unspecified site; F05 Delirium due to known physiological condition
CPT/HCPCS: 32555; 36415; 36416; 36591; 36600; 70450; 70551; 71045; 71250; 72125; 72128; 76705; 80048; 80051; 80053; 80307; 80503; 81001; 82140; 82330; 82607; 82805; 82945; 82962; 83036; 83605; 83615; 83735; 83880; 83986; 84145; 84155; 84157; 84443; 84484; 85025; 85378; 85610; 85651; 85730; 86140; 87040; 87077; 87186; 87205; 87426; 89050; 92507; 92523; 92526; 92610; 93005; 93306; 93308; 93880; 94664; 97110; 97161; 97167; 97530; 97535; 99285; C1751; C9113; G0378; J0696; J1642; J2543; J3370; J7050

== ENCOUNTER → 2022-06-29 09:27 | Outpatient (BNVA) | payer MEDICARE, SELFPAY | PROVIDERS: PCP Family Medicine; Visit Provider Nurse Practitioner Family | DX: R41.82 Altered mental status, unspecified (principal); R29.6 Repeated falls | CPT/HCPCS: 81003; 87086 ==